=== PATIENT | male | born 1965 | race Caucasian/White ===

== ENCOUNTER 2017-04-14 01:04 | Emergency (ER) | payer BC ==
[2017-04-14 01:17] VITALS: BP 154/74
--- NOTE | 2017-04-14 01:23 | EDM.PDOC ---
ED HPI GENERAL MEDICAL PROBLEM - General Chief Complaint: ENT Problem Stated Complaint: NOSE BLEED Time Seen by Provider: 04/14/17 01:20 - History of Present Illness INITIAL COMMENTS - FREE TEXT/NARRATIVE: HISTORY AND PHYSICAL: History of present illness: Patient 51-year-old male presents with a concern of left-sided epistaxis that has resolved and back pain is at 1 week he is seen by his physician and had a follow-up visit he is currently on hydrocodone which has been causing constipation for which he has stopped taking and Robaxin. He denies trauma denies bleeding diathesis denies ecchymosis or other concerns. Review of systems: As per history of present illness and below otherwise all systems reviewed and negative. Past medical history: As per history of present illness and as reviewed below otherwise noncontributory. Surgical history: As per history of present illness and as reviewed below otherwise noncontributory. Social history: No reported history of drug or alcohol abuse. Family history: As per history of present illness and as reviewed below otherwise noncontributory. Physical exam: HEENT: Atraumatic, normocephalic, pupils reactive, negative for conjunctival pallor or scleral icterus, mucous membranes moist, throat clear, neck supple, nontender, trachea midline. Recent bleeding noted left nares no active bleeding anteriorly or posteriorly at this time Lungs: Clear to auscultation, breath sounds equal bilaterally, chest nontender. Heart: S1S2, regular, negative for clicks, rubs, or JVD. Abdomen: Soft, nondistended, nontender. Negative for masses or hepatosplenomegaly. Negative for costovertebral tenderness. Pelvis: Stable nontender. Genitourinary: Deferred. Rectal: Deferred. Extremities: Atraumatic, negative for cords or calf pain. Neurovascular unremarkable. Neuro: Awake, alert, oriented. Cranial nerves II through XII unremarkable. Cerebellum unremarkable. Motor and sensory unremarkable throughout. Exam nonfocal. Back: Patient has some mild paravertebral tenderness the level of the lumbar spine no vertebral body or point tenderness he is able stand on his toes back on his heels deep tendon reflexes motor and sensory are normal Diagnostics: None Therapeutics: None Impression: #1 epistaxis resolved #2 lumbosacral strain Definitive disposition and diagnosis as appropriate pending reevaluation and review of above. - Related Data Allergies Allergy/AdvReac Type Severity Reaction Status Date / Time No Known Allergies Allergy Verified 04/14/17 01:15 Home Meds: Home Meds Hydrocodone/Acetaminophen [Concan 5-325 Tablet] 1 each PO ASDIRECTED PRN [History] Methocarbamol 500 mg PO TID 04/14/17 [History] Social & Family History - Tobacco Use Smoking Status *Q: Never Smoker Second Hand Smoke Exposure: No - Alcohol Use Days Per Week of Alcohol Use: 0 - Recreational Drug Use Recreational Drug Use: No ED ROS GENERAL - Review of Systems Review Of Systems: ROS reveals no pertinent complaints other than HPI. ED EXAM, GENERAL - Physical Exam Exam: See Below (See dictation) Course - Vital Signs Last Recorded V/S: Last Vital Signs Temp 36.8 C 04/14/17 01:16 Pulse 70 04/14/17 01:16 Resp 18 04/14/17 01:16 BP 154/74 H 04/14/17 01:16 Pulse Ox 98 04/14/17 01:16 Departure - Departure Time of Disposition: 01:22 Disposition: Home, Self-Care 01 Condition: Good Clinical Impression: Epistaxis, Lumbosacral strain - Discharge Information Referrals: PCP,None [Primary Care Provider] - Additional Instructions: The following information is given to patients seen in the emergency department who are being discharged to home. This information is to outline your options for follow-up care. We provide all patients seen in our emergency department with a follow-up referral. The need for follow-up, as well as the timing and circumstances, are variable depending upon the specifics of your emergency department visit. If you don't have a primary care physician on staff, we will provide you with a referral. We always advise you to contact your personal physician following an emergency department visit to inform them of the circumstance of the visit and for follow-up with them and/or the need for any referrals to a consulting specialist. The emergency department will also refer you to a specialist when appropriate. This referral assures that you have the opportunity for followup care with a specialist. All of these measure are taken in an effort to provide you with optimal care, which includes your followup. Under all circumstances we always encourage you to contact your private physician who remains a resource for coordinating your care. When calling for followup care, please make the office aware that this follow-up is from your recent emergency room visit. If for any reason you are refused follow-up, please contact the [facility] emergency department at and asked to speak to the emergency department charge nurse. Nosebleed instructions as discussed prescriptions as discussed return as needed as discussed keep scheduled appointments private medical doctor and ENT
== END 2017-04-14 01:35 | disposition home or self-care (01) ==
LOC: MW.ED 01:04
DX: R04.0 Epistaxis (principal); S39.012A Strain of muscle, fascia and tendon of lower back, initial encounter; X58.XXXA Exposure to other specified factors, initial encounter
CPT/HCPCS: 99282; 99283

== ENCOUNTER 2017-04-21 16:11 | Emergency (ER) | payer BC, OTHER ==
[2017-04-21] MEDS ORDERED: Magnesium Citrate Solution 296 ML Bottle PO ONE (17:05)
--- NOTE | 2017-04-21 17:17 | EDM.PDOC ---
ED HPI GENERAL MEDICAL PROBLEM - General Stated Complaint: TROUBLE PASSING STOOL Time Seen by Provider: 04/21/17 17:02 Source of Information: Reports: Patient History Limitations: Reports: No Limitations - History of Present Illness INITIAL COMMENTS - FREE TEXT/NARRATIVE: History of present illness: [Patient indicates that he has not had a bowel movement 4 days that he considered using an enema at home but it was too painful to insert so he comes seeking attention.] Review of systems: As per history of present illness and below otherwise all systems reviewed and negative. Past medical history: As per history of present illness and as reviewed below otherwise noncontributory. Surgical history: As per history of present illness and as reviewed below otherwise noncontributory. Social history: No reported history of drug or alcohol abuse. Family history: As per history of present illness and as reviewed below otherwise noncontributory. Physical exam: HEENT: Atraumatic, normocephalic, pupils reactive, negative for conjunctival pallor or scleral icterus, mucous membranes moist, throat clear, neck supple, nontender, trachea midline. Lungs: Clear to auscultation, breath sounds equal bilaterally, chest nontender. Heart: S1S2, regular, negative for clicks, rubs, or JVD. Abdomen: Soft, nondistended, nontender. Negative for masses or hepatosplenomegaly. Negative for costovertebral tenderness. Pelvis: Stable nontender. Genitourinary: Deferred. Rectal: Hemorrhoid noted, digital exam reveals an array of multiple small hard pellet sized Extremities: Atraumatic, negative for cords or calf pain. Neurovascular unremarkable. Neuro: Awake, alert, oriented. Cranial nerves II through XII unremarkable. Cerebellum unremarkable. Motor and sensory unremarkable throughout. Exam nonfocal. Diagnostics: [KUB] Therapeutics: [Mag citrate, a saline enema] Impression: [Constipation] Plan: [Take fiber follow-up with primary care] Definitive disposition and diagnosis as appropriate pending reevaluation and review of above. Rectal Pain Score (Numeric/FACES): 10 - Related Data Allergies Allergy/AdvReac Type Severity Reaction Status Date / Time No Known Allergies Allergy Verified 04/21/17 17:00 Home Meds: Home Meds Gabapentin [Neurontin] 100 mg PO BID 04/21/17 [History] Past Medical History - Infectious Disease History Infectious Disease History: Reports: Chicken Pox - Past Surgical History GI Surgical History: Reports: Appendectomy Musculoskeletal Surgical History: Reports: Other (See Below) Other Musculoskeletal Surgeries/Procedures:: Tibial Plateau Fracture Social & Family History - Family History Family Medical History: Noncontributory - Tobacco Use Smoking Status *Q: Never Smoker Second Hand Smoke Exposure: No - Caffeine Use Caffeine Use: Reports: None - Alcohol Use Days Per Week of Alcohol Use: 0 - Recreational Drug Use Recreational Drug Use: No ED ROS GENERAL - Review of Systems Review Of Systems: See Below (See history of present illness) ED EXAM, GENERAL - Physical Exam Exam: See Below (See history of present illness) Course - Vital Signs Last Recorded V/S: Last Vital Signs Temp 37.1 C 04/21/17 16:58 Pulse 74 04/21/17 16:58 Resp 18 04/21/17 16:58 BP 158/97 H 04/21/17 16:58 Pulse Ox 97 04/21/17 16:58 - Orders/Labs/Meds Orders: Active Orders 24 hr Category Date Time Status KUB [Abdomen 1V Flat] [CR] Stat Exams 04/21/17 18:04 Ordered Meds: Medications Discontinued Medications Generic Name Dose Route Start Last Admin Trade Name Freq PRN Reason Stop Dose Admin Magnesium Citrate 296 ml 04/21/17 17:05 04/21/17 17:18 Citrate Of Magnesia PO 04/21/17 17:06 296 ml ONETIME ONE Administration Departure - Departure Time of Disposition: 18:58 Disposition: Home, Self-Care 01 Condition: Good Clinical Impression: Constipation - Discharge Information Instructions: Constipation, Adult, [id number] Additional Instructions: The following information is given to patients seen in the emergency department who are being discharged to home. This information is to outline your options for follow-up care. We provide all patients seen in our emergency department with a follow-up referral. The need for follow-up, as well as the timing and circumstances, are variable depending upon the specifics of your emergency department visit. If you don't have a primary care physician on staff, we will provide you with a referral. We always advise you to contact your personal physician following an emergency department visit to inform them of the circumstance of the visit and for follow-up with them and/or the need for any referrals to a consulting specialist. The emergency department will also refer you to a specialist when appropriate. This referral assures that you have the opportunity for follow-up care with a specialist. All of these measure are taken in an effort to provide you with optimal care, which includes your follow-up. Under all circumstances we always encourage you to contact your private physician who remains a resource for coordinating your care. When calling for follow-up care, please make the office aware that this follow-up is from your recent emergency room visit. If for any reason you are refused follow-up, please contact the [facility] Emergency Department at and asked to speak to the emergency department charge nurse. Increase her hydration and your fiber intake Follow-up with PCP in 2-3 days Return to ED as needed as discussed - My Orders Last 24 Hours: My Active Orders 04/21/17 18:04 KUB [Abdomen 1V Flat] [CR] Stat - Assessment/Plan Last 24 Hours: My Active Orders 04/21/17 18:04 KUB [Abdomen 1V Flat] [CR] Stat
[2017-04-21 23:08] VITALS: BP 157/80
--- NOTE | 2017-04-22 20:43 | CR ---
EXAM DATE: 04/21/17 PATIENT'S AGE: 51 Patient: VALERY JONES Facility: [place], [place] Site . Site : 1965 Study: XRay Abdomen [id number] 6:37:57 PM Ordering Physician: Doctor Cooper Final Report: INDICATION: constipation x4 days TECHNIQUE: Abdomen 2 view COMPARISON: None FINDINGS: Bowel: Nonobstructive bowel gas pattern. Moderate amount of stool. Soft tissues: No sign of soft tissue mass. No suspicious calcifications. Bones: Unremarkable for age. IMPRESSION: Nonobstructive bowel gas pattern. Moderate amount of stool. Dictated by Shahid Arana MD @ 04/21/2017 6:53:53 PM Dictated by: Shahid Arana MD @ 04/21/2017 18:54:06 (Electronic Signature) Report Signed by Proxy. RASHMI
== END 2017-04-21 20:00 | disposition home or self-care (01) ==
LOC: MW.ED 16:11
DX: K59.00 Constipation, unspecified (principal)
CPT/HCPCS: 74018; 99283; A9270; 99282

== ENCOUNTER 2017-04-24 21:19 | Inpatient (IN) | payer BC ==
[2017-04-24] MEDS ORDERED: Sodium Chloride 0.9% 1,000 ML IV ONE (21:41)
--- NOTE | 2017-04-24 22:13 | EDM.PDOC ---
ED HPI GENERAL MEDICAL PROBLEM - General Stated Complaint: UNK Time Seen by Provider: 04/24/17 22:00 Source of Information: Reports: Patient History Limitations: Reports: No Limitations - History of Present Illness INITIAL COMMENTS - FREE TEXT/NARRATIVE: History of present illness: [51-year-old male comes in status post seeing his primary care provider in the clinic with concerns of nosebleed as well as vomiting of blood. Patient has been struggling with pain in his lower back abdomen and constipation issues and has received different medical intervention for this. Patient denies significant weight loss. indicates he's always been slender. Patient looks significantly older than stated age.] Review of systems: As per history of present illness and below otherwise all systems reviewed and negative. Past medical history: As per history of present illness and as reviewed below otherwise noncontributory. Surgical history: As per history of present illness and as reviewed below otherwise noncontributory. Social history: No reported history of drug or alcohol abuse. Family history: As per history of present illness and as reviewed below otherwise noncontributory. Physical exam: HEENT: Atraumatic, normocephalic, pupils reactive, negative for conjunctival pallor or scleral icterus, mucous membranes moist, throat clear, neck supple, nontender, trachea midline. Lungs: Clear to auscultation, breath sounds equal bilaterally, chest nontender. Heart: S1S2, regular, negative for clicks, rubs, or JVD. Abdomen: Soft, nondistended, generalized nonspecific diffuse tenderness. Large amount of hepatosplenomegaly. Positive for costovertebral tenderness. Pelvis: Stable nontender. Genitourinary: Deferred. Rectal: Deferred. Extremities: Atraumatic, negative for cords or calf pain. Neurovascular unremarkable. Neuro: Awake, alert, oriented. Cranial nerves II through XII unremarkable. Cerebellum unremarkable. Motor and sensory unremarkable throughout. Exam nonfocal. Patient is pleasant and cooperative even if slightly pale. CT of abdomen reflected in a large mass on the liver as well as the sacrum. Also some thoracic compression fractures Will pull some baseline labs and admit to the hospitalist for further workup, pain management, referral to oncology. Diagnostics: [CBC, CMP, type and screen, UA, amylase, lipase] Therapeutics: [IV fluid] Impression: [#1 anemia #2 abdominal mass #3 epitaxsis #4 blood dyscrasia ] Plan: [admit to Dr. Truong] Definitive disposition and diagnosis as appropriate pending reevaluation and review of above. - Related Data Allergies Allergy/AdvReac Type Severity Reaction Status Date / Time No Known Allergies Allergy Verified 04/21/17 17:00 Home Meds: Home Meds Gabapentin [Neurontin] 100 mg PO BID 04/21/17 [History] Polyethylene Glycol 3350 [MiraLAX] 17 gm PO BEDTIME #30 packet 04/21/17 [Rx] Past Medical History Gastrointestinal History: Reports: Chronic Constipation Musculoskeletal History: Reports: Fracture - Infectious Disease History Infectious Disease History: Reports: Chicken Pox - Past Surgical History GI Surgical History: Reports: Appendectomy Musculoskeletal Surgical History: Reports: Other (See Below) Other Musculoskeletal Surgeries/Procedures:: Tibial Plateau Fracture Social & Family History - Family History Family Medical History: Noncontributory - Tobacco Use Smoking Status *Q: Never Smoker Second Hand Smoke Exposure: No - Caffeine Use Caffeine Use: Reports: None - Alcohol Use Days Per Week of Alcohol Use: 0 - Recreational Drug Use Recreational Drug Use: No ED ROS GENERAL - Review of Systems Review Of Systems: See Below (History of present illness) ED EXAM, GENERAL - Physical Exam Exam: See Below (History of present illness) Course - Vital Signs Last Recorded V/S: Last Vital Signs Temp 36.8 C 04/24/17 22:06 Pulse 91 04/24/17 22:06 Resp 14 04/24/17 22:06 BP 155/87 H 04/24/17 22:06 Pulse Ox 92 L 04/24/17 22:06 - Orders/Labs/Meds Orders: Active Orders 24 hr Category Date Time Status AMYLASE [CHEM] Stat Lab 04/24/17 22:05 Received COMPREHENSIVE METABOLIC PN,CMP [CHEM] Stat Lab 04/24/17 22:05 Received LIPASE [CHEM] Stat Lab 04/24/17 22:05 Received TYPE AND SCREEN [BBK] Stat Lab 04/24/17 22:22 Received UA W/MICROSCOPIC [URIN] Stat Lab 04/24/17 21:41 Uncollected Labs: Laboratory Tests 04/24/17 Range/Units 22:05 WBC 12.51 H (4.0-11.0) K/uL RBC 2.19 L (4.50-5.90) M/uL Hgb 7.1 L (13.0-17.0) g/dL Hct 21.2 L (38.0-50.0) % MCV 96.8 (80.0-98.0) fL MCH 32.4 H (27.0-32.0) pg MCHC 33.5 (31.0-37.0) g/dL RDW Std Deviation 61.8 (28.0-62.0) fl RDW Coeff of Francis 18 H (11.0-15.0) % Plt Count 136 L (150-400) K/uL MPV 8.90 (7.40-12.00) fL Add Manual Diff YES Neutrophils % (Manual) 37 L (48.0-80.0) % Band Neutrophils % 3 % Lymphocytes % (Manual) 57 H (16.0-40.0) % Monocytes % (Manual) 3 (0.0-15.0) % Nucleated RBC % 1.2 /100WBC Absolute Seg Neuts 4.6 (1.4-5.7) Band Neutrophils # 0.4 Lymphocytes # (Manual) 7.1 H (0.6-2.4) Monocytes # (Manual) 0.4 (0.0-0.8) Nucleated RBCs # 0 K/uL Meds: Medications Discontinued Medications Generic Name Dose Route Start Last Admin Trade Name Latesha PRN Reason Stop Dose Admin Sodium Chloride 1,000 mls @ 999 mls/hr 04/24/17 21:41 04/24/17 22:05 Normal Saline IV 04/24/17 22:41 999 mls/hr STAT ONE Administration Departure - Departure Time of Disposition: 23:09 Disposition: Admitted As Inpatient 66 Condition: Good Clinical Impression: Blood coagulation disorder - Discharge Information Referrals: Little Roth MD [Primary Care Provider] - - My Orders Last 24 Hours: My Active Orders 04/24/17 21:41 UA W/MICROSCOPIC [URIN] Stat 04/24/17 22:05 AMYLASE [CHEM] Stat COMPREHENSIVE METABOLIC PN,CMP [CHEM] Stat LIPASE [CHEM] Stat 04/24/17 22:22 TYPE AND SCREEN [BBK] Stat - Assessment/Plan Last 24 Hours: My Active Orders 04/24/17 21:41 UA W/MICROSCOPIC [URIN] Stat 04/24/17 22:05 AMYLASE [CHEM] Stat COMPREHENSIVE METABOLIC PN,CMP [CHEM] Stat LIPASE [CHEM] Stat 04/24/17 22:22 TYPE AND SCREEN [BBK] Stat
[2017-04-24] MEDS: Sodium Chloride 0.9% 1,000 ML IV SCH (23:34)
[2017-04-25] MEDS: Sodium Chloride 0.9% 1,000 ML IV SCH (09:14)
--- NOTE | 2017-04-25 09:25 | PCM.HP ---
H&P History of Present Illness - General Date of Service: 04/25/17 Admit Problem/Dx: Admission Diagnosis/Problem Admission Diagnosis/Problem Blood coagulation disorder Source of Information: Patient History Limitations: Reports: No Limitations - History of Present Illness Initial Comments - Free Text/Narative: This 51 year old otherwise healthy male presented to the ED last evening with concerns of lytic lesion to L sacrum after having CT of abd/pelvis in clinic. He reports low back pain started a little before [place] and has slowly worsened. Many of the medications he has tried haven't worked well. These include Ibuprofen, muscle relaxer, and Gabapentin. He also reports having a nagging nose bleed, which has been intermittent since this time as well. He denies trauma to his nose. He denies vomiting blood, but reports he has been swallowing a lot and sniffling. She reports coming to the ED around [employer] for a nose bleed, but the second they got outside it stopped and also constipation due to [place]. he was treated with Mag Citrate. He reports then having many BM's and his noted his rectum was very large and filled with stool and noticed elma blood as well. They also report hematuria, which they saw PCP Apr 07 for, which they suspected kidney stone at that time. He reports having some changes in bowel habits, but some of these are explained by starting of pain medications. He denies having a colonoscopy for screening. In the ED, WBC 12,510, hgb 7.1 platelets 136. BUN 58, Cr 2.2. BP 140-160.90s and HR 70-90s. CT of abdomen/pelvis revealed "marked hepatomegaly without mass lesion, Mild splenomegaly, Bilateral renal cysts without calcified urolithiasis , hydronephrosis or ureteral obstruction, 4.2 cm lytic mass left side of the sacrum suspicious for neoplasia. Moderate T12 compression fracture which may be pathologic as there is some lucency in the posterior aspect of the T12 vertebral body. A small 9 mm lucency seen posterior right aspect of T11. Ascites with presacral edema, The sigmoid colon is decompressed. Questionable circumferential wall thickening of the rectosigmoid junction, Scrotal edema." He was admitted due to back pain and anemia. - Related Data Allergies/Adverse Reactions: Allergies Allergy/AdvReac Type Severity Reaction Status Date / Time No Known Allergies Allergy Verified 04/21/17 17:00 Home Medications: Home Meds Gabapentin [Neurontin] 100 mg PO BID 04/21/17 [History] Polyethylene Glycol 3350 [MiraLAX] 17 gm PO BEDTIME #30 packet 04/21/17 [Rx] Past Medical History HEENT History: Reports: None Cardiovascular History: Reports: None. Denies: Afib, Blood Clots/VTE/DVT, CAD, Heart Failure, High Cholesterol, Hypertension, PR Respiratory History: Reports: None. Denies: Asthma, COPD, PE Gastrointestinal History: Reports: Chronic Constipation Musculoskeletal History: Reports: Fracture Neurological History: Reports: None. Denies: CVA, Migraines, TIA Psychiatric History: Reports: None Endocrine/Metabolic History: Reports: None. Denies: Diabetes, Type II, Hypothyroidism Hematologic History: Reports: None - Infectious Disease History Infectious Disease History: Reports: Chicken Pox - Past Surgical History GI Surgical History: Reports: Appendectomy Male Surgical History: Reports: None Musculoskeletal Surgical History: Reports: Other (See Below) Other Musculoskeletal Surgeries/Procedures:: Tibial Plateau Fracture Social & Family History - Family History Family Medical History: Noncontributory - Tobacco Use Smoking Status *Q: Never Smoker Second Hand Smoke Exposure: No - Caffeine Use Caffeine Use: Reports: Soda - Alcohol Use Days Per Week of Alcohol Use: 0 - Recreational Drug Use Recreational Drug Use: No - Living Situation & Occupation Living situation: Reports: Occupation: Employed (Works at [employer]) H&P Review of Systems - Review of Systems: Review Of Systems: See Below General: Reports: Fatigue ( reports he has been sleeping a lot). Denies: Fever, Chills, Decreased Appetite HEENT: Reports: Other (Epitaxis, intermittently) Pulmonary: Reports: No Symptoms. Denies: Shortness of Breath, Wheezing, Cough, Sputum, Hemoptysis Cardiovascular: Reports: No Symptoms. Denies: Chest Pain, Palpitations, Edema, Lightheadedness, Syncope Gastrointestinal: Reports: Bloody Stool (reports during episode of consitpation , he has some rectal bleeding due to full rectum), Constipation, Flatus. Denies : Abdominal Pain, Anorexia, Distension, Nausea, Vomiting Genitourinary: Reports: Hematuria. Denies: Dysuria, Frequency, Burning Musculoskeletal: Reports: No Symptoms Skin: Reports: Pallor Psychiatric: Reports: No Symptoms Neurological: Reports: No Symptoms. Denies: Confusion Hematologic/Lymphatic: Reports: Anemia, Easy Bleeding Immunologic: Reports: No Symptoms Exam - Exam Exam: See Below - Vital Signs Vital Signs: Last Vital Signs Temp 99.0 F 04/25/17 08:00 Pulse 78 04/25/17 08:00 Resp 16 04/25/17 08:00 BP 147/93 H 04/25/17 08:00 Pulse Ox 94 L 04/25/17 08:00 Weight: 59.421 kg - Exam General: Alert, Oriented, Cooperative, Other (appears pale and cachetic, reports he has always been thin, no increased weight loss recently.) HEENT: Conjunctiva Clear. No: Mucosa Moist & [place] (dry cracked lips.) Neck: Supple, Trachea Midline. No: Full Range of Motion, Lymphadenopathy Lungs: Clear to Auscultation, Normal Respiratory Effort Cardiovascular: Regular Rate, Regular Rhythm, Normal S1, Normal S2 GI/Abdominal Exam: Normal Bowel Sounds, Soft, Non-Tender, No Organomegaly, No Distention, No Abnormal Bruit, No Mass, Hepatomegaly, Other (abdomen flat). No : Distended, Guarding, Rigid (Male) Exam: Scrotal Swelling (slight edema noted) Back Exam: Normal Inspection, Full Range of Motion, NT Extremities: Normal Inspection, Normal Range of Motion, Non-Tender, No Pedal Edema, Normal Capillary Refill Neurological: Cranial Nerves Intact, Reflexes Equal Bilateral Neuro Extensive - Mental Status: Alert, Oriented x3, Normal Mood/Affect, Normal Cognition Neuro Extensive - Motor, Sensory, Reflexes: CN II-XII Intact Psychiatric: Alert, Normal Affect, Normal Mood - Patient Data Lab Results Last 24 hrs: Laboratory Results - last 24 hr 04/25/17 04/25/17 04/25/17 Range/Units 00:49 04:42 04:42 WBC 12.22 H (4.0-11.0) K/uL RBC 1.91 L (4.50-5.90) M/uL Hgb 6.2 L (13.0-17.0) g/dL Hct 18.5 L (38.0-50.0) % MCV 96.9 (80.0-98.0) fL MCH 32.5 H (27.0-32.0) pg MCHC 33.5 (31.0-37.0) g/dL RDW Std Deviation 61.2 (28.0-62.0) fl RDW Coeff of Francis 18 H (11.0-15.0) % Plt Count 161 (150-400) K/uL MPV 9.00 (7.40-12.00) fL Add Manual Diff YES Neutrophils % (Manual) 34 L (48.0-80.0) % Band Neutrophils % 3 % Lymphocytes % (Manual) 59 H (16.0-40.0) % Monocytes % (Manual) 4 (0.0-15.0) % Nucleated RBC % 1.2 /100WBC Absolute Seg Neuts 4.2 (1.4-5.7) Band Neutrophils # 0.4 Lymphocytes # (Manual) 7.2 H (0.6-2.4) Monocytes # (Manual) 0.5 (0.0-0.8) Nucleated RBCs # 0 K/uL Sodium 137 (136-146) mmol/L Potassium 3.5 (3.5-5.1) mmol/L Chloride 100 (98-110) mmol/L Carbon Dioxide 26 (21-31) mmol/L BUN 58 H (6.0-23.0) mg/dL Creatinine 2.2 H (0.6-1.5) mg/dL Est Cr Clr Drug Dosing 33.39 mL/min Estimated GFR (MDRD) 31.7 ml/min Glucose 96 (60-110) mg/dL Calcium 13.9 H (8.8-10.8) mg/dL Magnesium 1.8 (1.5-2.3) mEq/L Urine Color YELLOW Urine Appearance SLT CLOUDY Urine pH 6.5 (5.0-8.0) Ur Specific [place] 1.015 (1.001-1.035) Urine Protein 100 (NEGATIVE) mg/dL Urine Glucose (UA) NEGATIVE (NEGATIVE) mg/dL Urine Ketones NEGATIVE (NEGATIVE) mg/dL Urine Occult Blood LARGE H (NEGATIVE) Urine Nitrite NEGATIVE (NEGATIVE) Urine Bilirubin NEGATIVE (NEGATIVE) Urine Urobilinogen 0.2 (<2.0) EU/dL Ur Leukocyte Esterase NEGATIVE (NEGATIVE) Urine RBC TOO NUMBEROUS TO CT (0-2/HPF) Urine WBC 1-2 (0-5/HPF) Ur Epithelial Cells RARE (NONE-FEW) Urine Bacteria FEW (NEGATIVE) Result Diagrams: 04/25/17 04:42 04/25/17 04:42 *Q Meaningful Use (ADM) - VTE *Q VTE Criteria *Q: - Stroke *Q Stroke Criteria *Q: - AMI *Q AMI Criteria *Q: - Problem List (1) Anemia SNOMED Code(s): 112473513 ICD Code: D64.9 - ANEMIA, UNSPECIFIED Status: Acute Current Visit: Yes Qualifiers: Anemia type: unspecified type Qualified Code(s): D64.9 - Anemia, unspecified (2) Sacral lesion SNOMED Code(s): 75583286 ICD Code: M53.3 - SACROCOCCYGEAL DISORDERS, NOT ELSEWHERE CLASSIFIED Status : Acute Current Visit: Yes (3) Low back pain SNOMED Code(s): 285884860 ICD Code: M54.5 - LOW BACK PAIN Status: Acute Current Visit: Yes (4) Compression fracture of T12 vertebra SNOMED Code(s): 671936935 ICD Code: S22.080A - WEDGE COMPRESSION FRACTURE OF T11-T12 VERTEBRA, INIT Status: Acute Current Visit: Yes (5) Hepatomegaly SNOMED Code(s): 49913456 ICD Code: R16.0 - HEPATOMEGALY, NOT ELSEWHERE CLASSIFIED Status: Acute Current Visit: Yes (6) Epistaxis SNOMED Code(s): 042392562 ICD Code: R04.0 - EPISTAXIS Status: Acute Current Visit: No Problem List Initiated/Reviewed/Updated: Yes Orders Last 24hrs: Active Orders 24 hr Category Date Time Status Regular Diet [DIET] Diet 04/25/17 Breakfast Active FERRITIN [REF] Routine Lab 04/25/17 09:14 Ordered FOLIC ACID [CHEM] Routine Lab 04/25/17 09:14 Ordered INR,PT,PROTHROMBIN TIME [COAG] Routine Lab 04/25/17 09:18 Ordered IRON/TIBC [CHEM] Routine Lab 04/25/17 09:14 Ordered PERIPH BLOOD SMEAR PATHOLOGIST [HEME] Routine Lab 04/25/17 09:14 Ordered RED BLOOD CELLS LP [BBK] Routine Lab 04/24/17 22:22 Results RETICULOCYTE COUNT [HEME] Routine Lab 04/25/17 09:14 Ordered TRANSFERRIN [CHEM] Routine Lab 04/25/17 09:14 Ordered VITAMIN B12 [CHEM] Routine Lab 04/25/17 09:14 Ordered Sodium Chloride 0.9% [Normal Saline] 1,000 ml Med 04/24/17 23:45 Active IV ASDIRECTED Transfuse RBC [Transfuse Red Blood Cells] [COMM] Oth 04/25/17 09:14 Ordered Routine Medication Orders Sodium Chloride (Normal Saline) 1,000 mls @ 125 mls/hr IV ASDIRECTED [facility] Last Admin: 04/25/17 09:14 Dose: 125 mls/hr Infusion: 04/25/17 07:34 Dose: 125 mls/hr Admin: 04/24/17 23:34 Dose: 125 mls/hr Assessment/Plan Comment:: This 51 year old male admitted with suspicious sacral lytic lesion, low back pain and new onset symptomatic anemia 1. New onset anemia: possibly related to neoplasm. Iron studies and peripheral smear pending. Hgb 6.2 this morning, patient tired and easily falls asleep during interview. reports this has been happening recently. Will transfuse 2 units PRBCs this morning, and check Hgb this afternoon. Goal of 10 for hgb. Will monitor. Iron 73, TIBC low at 208, transferrin 146. Consider slow bleed? Peripheral smear still pending. 2. Lytic spinal lesion: 4.2 cm L side of sacrum. Suspicious for neoplasm with lucencies noted in T12 and T11 with compression fractures. I spoke with Dr. All Gracia who has agreed to perform biopsy when patient is more stable. Will have this arranged as outpatient next week if possible. Will speak with Oncology nurse to give them a heads up to arrange follow up as well. 3. Hepatomegaly: INR slightly elevated 1.15 with elevated bilirubin, 1.6. Lipase elevated as well, reports no abdominal pain or nausea. No lesions noted to pancreas or Liver. Mild splenomegaly noted on CT as well. Consider malignancy. 4. Low back pain: Likely secondary to sacral lesion and compression fractures. Will order pain medication as well as Colace to prevent constipation. VTE: SCDs due to acute bleeding Dispo: 2-3 day pending improvement.
[2017-04-25] MEDS ORDERED: Docusate Sodium 100 MG Cap PO PRN (10:31)
[2017-04-25] MEDS ORDERED: oxyCODONE 5 MG Tab PO PRN (10:31)
[2017-04-25] MEDS ORDERED: Acetaminophen 325 MG Tab PO PRN (10:31)
--- NOTE | 2017-04-26 06:43 | PCM.PN ---
- General Info Date of Service: 04/26/17 Admission Dx/Problem (Free Text): Admission Diagnosis/Problem Admission Diagnosis/Problem Blood coagulation disorder Subjective Update: Still very fatigued this morning. Having no pain. Is somewhat discouraged secondary to wanting to go home but not able to at this time. No nausea/ vomiting, sob, chest pain, palpitiations. Functional Status: Reports: Pain Controlled. Denies: Tolerating Diet - Review of Systems General: Reports: Weakness, Fatigue. Denies: Fever HEENT: Denies: Headaches, Visual Changes Pulmonary: Denies: Shortness of Breath, Hemoptysis Cardiovascular: Denies: Chest Pain, Palpitations, Edema Gastrointestinal: Denies: Abdominal Pain, Nausea, Vomiting Genitourinary: Denies: Dysuria, Hematuria Musculoskeletal: Denies: Neck Pain, Leg Pain Skin: Denies: Cyanosis Neurological: Denies: Confusion, Dizziness, Headache - Patient Data Vitals - Most Recent: Last Vital Signs Temp 98.9 F 04/26/17 05:14 Pulse 74 04/26/17 05:14 Resp 16 04/26/17 05:14 BP 157/81 H 04/26/17 05:14 Pulse Ox 94 L 04/26/17 05:14 Weight - Most Recent: 59.421 kg I&O - Last 24 Hours: Intake & Output 04/25/17 04/25/17 04/26/17 14:59 22:59 06:59 Intake Total 9584 341 3630 Output Total 1200 1850 Balance 1371 -465 -96 Lab Results Last 24 Hours: Laboratory Results - last 24 hr 04/25/17 04/25/17 04/25/17 Range/Units 04:42 09:39 09:39 WBC 12.22 H (4.0-11.0) K/uL RBC 1.91 L 1.93 L (4.50-5.90) M/uL Hgb 6.2 L (13.0-17.0) g/dL Hct 18.5 L (38.0-50.0) % MCV 96.9 (80.0-98.0) fL MCH 32.5 H (27.0-32.0) pg MCHC 33.5 (31.0-37.0) g/dL RDW Std Deviation 61.2 (28.0-62.0) fl RDW Coeff of Francis 18 H (11.0-15.0) % Plt Count 161 (150-400) K/uL MPV 9.00 (7.40-12.00) fL Add Manual Diff YES Neutrophils % (Manual) 34 L (48.0-80.0) % Band Neutrophils % 3 % Lymphocytes % (Manual) 59 H (16.0-40.0) % Monocytes % (Manual) 4 (0.0-15.0) % Nucleated RBC % 1.2 /100WBC Absolute Seg Neuts 4.2 (1.4-5.7) Band Neutrophils # 0.4 Lymphocytes # (Manual) 7.2 H (0.6-2.4) Monocytes # (Manual) 0.5 (0.0-0.8) Nucleated RBCs # 0 K/uL Smear Path Review SENT TO PATHOLOGY Absolute Retic 23.90 (20-80) K/uL Percent Retic 1.2 (0.5-1.5) % Immature Retic Fraction 20 % INR (0.86-1.11) Iron 73 (50-170) ug/dL TIBC 208 L (273-456) ug/dL % Saturation 35.10 (20-55) % Transferrin 146 L (200-400) ug/dL Vitamin B12 (200-1100) PG/ML Folate (7.2-15.4) ng/mL 04/25/17 04/25/17 04/25/17 Range/Units 09:39 09:39 18:14 WBC (4.0-11.0) K/uL RBC (4.50-5.90) M/uL Hgb 7.8 L (13.0-17.0) g/dL Hct 22.4 L (38.0-50.0) % MCV (80.0-98.0) fL MCH (27.0-32.0) pg MCHC (31.0-37.0) g/dL RDW Std Deviation (28.0-62.0) fl RDW Coeff of Francis (11.0-15.0) % Plt Count (150-400) K/uL MPV (7.40-12.00) fL Add Manual Diff Neutrophils % (Manual) (48.0-80.0) % Band Neutrophils % % Lymphocytes % (Manual) (16.0-40.0) % Monocytes % (Manual) (0.0-15.0) % Nucleated RBC % /100WBC Absolute Seg Neuts (1.4-5.7) Band Neutrophils # Lymphocytes # (Manual) (0.6-2.4) Monocytes # (Manual) (0.0-0.8) Nucleated RBCs # K/uL Smear Path Review Absolute Retic (20-80) K/uL Percent Retic (0.5-1.5) % Immature Retic Fraction % INR 1.15 H (0.86-1.11) Iron (50-170) ug/dL TIBC (273-456) ug/dL % Saturation (20-55) % Transferrin (200-400) ug/dL Vitamin B12 662 (200-1100) PG/ML Folate 15.4 (7.2-15.4) ng/mL Med Orders - Current: Current Medications Acetaminophen (Tylenol) 650 mg PO Q4H PRN PRN Reason: Pain (Mild 1-3)/fever Docusate Sodium (Colace) 100 mg PO BID PRN PRN Reason: Constipation Sodium Chloride (Normal Saline) 1,000 mls @ 125 mls/hr IV ASDIRECTED [facility] Last Admin: 04/25/17 09:14 Dose: 125 mls/hr Oxycodone HCl (Oxycodone) 5 mg PO Q4H PRN PRN Reason: Pain (moderate 4-6) Discontinued Medications Sodium Chloride (Normal Saline) 1,000 mls @ 999 mls/hr IV STAT ONE Stop: 04/24/17 22:41 Last Admin: 04/24/17 22:05 Dose: 999 mls/hr - Exam Quality Assessment: DVT Prophylaxis General: Alert, Oriented, Cooperative, No Acute Distress HEENT: Pupils Equal, Pupils Reactive, EOMI, Mucous Membr. Moist/[place] Neck: Supple, Trachea Midline Lungs: Clear to Auscultation, Normal Respiratory Effort Cardiovascular: Regular Rate, Regular Rhythm GI/Abdominal Exam: Normal Bowel Sounds, Soft, Non-Tender, No Distention, Hepatomegaly, Splenomegaly Back Exam: Normal Inspection Extremities: Normal Inspection, Non-Tender, No Pedal Edema, Normal Capillary Refill Peripheral Pulses: 2+: Radial (L), Radial (R), Posterior Tibial (L), Posterior Tibial (R), Dorsalis Pedis (L), Dorsalis Pedis (R) Skin: Warm, Dry, Intact Neurological: No New Focal Deficit Psy/Mental Status: Alert, Normal Affect, Normal Mood - Problem List & Annotations (1) Anemia SNOMED Code(s): 135292963 Code(s): D64.9 - ANEMIA, UNSPECIFIED Status: Acute Current Visit: Yes Qualifiers: Anemia type: iron deficiency Iron deficiency anemia type: chronic blood loss Qualified Code(s): D50.0 - Iron deficiency anemia secondary to blood loss (chronic) (2) Compression fracture of T12 vertebra SNOMED Code(s): 208652094 Code(s): S22.080A - WEDGE COMPRESSION FRACTURE OF T11-T12 VERTEBRA, INIT Status: Acute Priority: Medium Current Visit: Yes (3) Hepatomegaly SNOMED Code(s): 61109465 Code(s): R16.0 - HEPATOMEGALY, NOT ELSEWHERE CLASSIFIED Status: Acute Priority: Medium Current Visit: Yes (4) Sacral lesion SNOMED Code(s): 75004934 Code(s): M53.3 - SACROCOCCYGEAL DISORDERS, NOT ELSEWHERE CLASSIFIED Status : Acute Priority: High Current Visit: Yes - Problem List Review Problem List Initiated/Reviewed/Updated: Yes - My Orders Last 24 Hours: My Active Orders 04/25/17 18:42 Transfuse RBC [Transfuse Red Blood Cells] [COMM] Routine 04/25/17 Breakfast Regular Diet [DIET] - Plan Plan:: 51 year old male admitted 04/24/16 with suspicious sacral lytic lesion, low back pain and new onset symptomatic anemia 1. New onset anemia: Most likely related to new sacral neoplasm. 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 Peripheral smear is still pending. Hgb 9.8 this morning, will recheck again at noon and tomorrow am to see if stabilized. 2. Lytic spinal lesion: 4.2 cm L side of sacrum. Suspicious for neoplasm with lucencies noted in T12 and T11 with compression fractures. Will plan for Dr. Gracia to do biopsy if patient remains stabilized. This can be preformed as an outpatient. We have talked to Oncology nurses for future follow-up at discharge. If patient continues to bleed, and hgb does not stabilize he may need transfer to larger facility. 3. Hepatomegaly: INR slightly elevated 1.15 with elevated bilirubin, 1.6. Lipase elevated as well, reports no abdominal pain or nausea. No lesions noted to pancreas or Liver. Mild splenomegaly noted on CT as well. Consider malignancy. 4. Low back pain: Likely secondary to sacral lesion and compression fractures. Pain control currently with pain medication. VTE: SCDs due to acute bleeding Dispo: 2-3 day pending improvement.
[2017-04-26] MEDS: Sodium Chloride 0.9% 1,000 ML IV SCH ×2 (07:13→18:36)
[2017-04-26] MEDS: Pantoprazole 40 MG Vial IVPUSH SCH ×2 (18:43→20:45)
[2017-04-26] MEDS ORDERED: hydrALAZINE 20 MG/ML SDV IVPUSH ONE (21:03)
[2017-04-27] MEDS: Sodium Chloride 0.9% 1,000 ML IV SCH ×3 (02:55→19:16)
--- NOTE | 2017-04-27 08:15 | PCM.PN ---
- General Info Date of Service: 04/27/17 Admission Dx/Problem (Free Text): Admission Diagnosis/Problem Admission Diagnosis/Problem Blood coagulation disorder Subjective Update: Still feeling very fatigued and unable to eat much. However, does feel he is improved from yesterday. No pain, nausea, vomiting, diarrhea. - Review of Systems General: Reports: Weakness, Fatigue, Malaise. Denies: Fever, Appetite HEENT: Denies: Headaches, Visual Changes Pulmonary: Denies: Shortness of Breath, Hemoptysis Cardiovascular: Denies: Chest Pain, Edema Gastrointestinal: Denies: Abdominal Pain Genitourinary: Reports: Hematuria. Denies: Dysuria Musculoskeletal: Denies: Neck Pain, Leg Pain Skin: Denies: Cyanosis Neurological: Denies: Confusion, Dizziness, Headache - Patient Data Vitals - Most Recent: Last Vital Signs Temp 98.2 F 04/27/17 04:00 Pulse 80 04/27/17 04:00 Resp 16 04/27/17 04:00 BP 155/93 H 04/27/17 04:00 Pulse Ox 96 04/27/17 04:00 Weight - Most Recent: 59.421 kg I&O - Last 24 Hours: Intake & Output 04/26/17 04/27/17 04/27/17 22:59 06:59 14:59 Intake Total 500 600 Output Total 2300 2100 Balance -1800 -1500 Lab Results Last 24 Hours: Laboratory Results - last 24 hr 04/26/17 04/26/17 04/27/17 Range/Units 09:12 12:14 04:30 WBC 9.60 (4.0-11.0) K/uL RBC 2.95 L (4.50-5.90) M/uL Hgb 9.6 L 9.3 L (13.0-17.0) g/dL Hct 27.5 L 26.6 L (38.0-50.0) % MCV 90.2 (80.0-98.0) fL MCH 31.5 (27.0-32.0) pg MCHC 35.0 (31.0-37.0) g/dL RDW Std Deviation 63.8 H (28.0-62.0) fl RDW Coeff of Francis 20 H (11.0-15.0) % Plt Count 172 (150-400) K/uL MPV 9.00 (7.40-12.00) fL Add Manual Diff YES Nucleated RBC % 1.4 /100WBC Nucleated RBCs # 0 K/uL Sodium 140 (136-146) mmol/L Potassium 3.5 (3.5-5.1) mmol/L Chloride 102 (98-110) mmol/L Carbon Dioxide 20 L (21-31) mmol/L BUN 53 H (6.0-23.0) mg/dL Creatinine 2.2 H (0.6-1.5) mg/dL Est Cr Clr Drug Dosing 33.39 mL/min Estimated GFR (MDRD) 31.7 ml/min Glucose 89 (60-110) mg/dL Calcium 14.3 H (8.8-10.8) mg/dL Total Bilirubin 1.8 H (0.1-1.5) mg/dL AST 50 H (5-40) IU/L ALT 36 (8-54) IU/L Alkaline Phosphatase 127 (40-150) Total Protein 11.8 H (6.0-8.0) g/dL Albumin 2.2 L (3.5-5.0) g/dL Globulin 9.6 H (2.0-3.5) g/dL Albumin/Globulin Ratio 0.23 Lipase 100 H (7-80) U/L 04/27/17 Range/Units 04:30 WBC (4.0-11.0) K/uL RBC (4.50-5.90) M/uL Hgb (13.0-17.0) g/dL Hct (38.0-50.0) % MCV (80.0-98.0) fL MCH (27.0-32.0) pg MCHC (31.0-37.0) g/dL RDW Std Deviation (28.0-62.0) fl RDW Coeff of Francis (11.0-15.0) % Plt Count (150-400) K/uL MPV (7.40-12.00) fL Add Manual Diff Nucleated RBC % /100WBC Nucleated RBCs # K/uL Sodium 141 (136-146) mmol/L Potassium 3.3 L (3.5-5.1) mmol/L Chloride 106 (98-110) mmol/L Carbon Dioxide 22 (21-31) mmol/L BUN 46 H (6.0-23.0) mg/dL Creatinine 2.3 H (0.6-1.5) mg/dL Est Cr Clr Drug Dosing 31.93 mL/min Estimated GFR (MDRD) 30.1 ml/min Glucose 95 (60-110) mg/dL Calcium 14.2 H (8.8-10.8) mg/dL Total Bilirubin 1.8 H (0.1-1.5) mg/dL AST 44 H (5-40) IU/L ALT 33 (8-54) IU/L Alkaline Phosphatase 123 (40-150) Total Protein 11.5 H (6.0-8.0) g/dL Albumin 2.1 L (3.5-5.0) g/dL Globulin 9.4 H (2.0-3.5) g/dL Albumin/Globulin Ratio 0.22 Lipase (7-80) U/L Zak Results Last 24 Hours: Microbiology 04/26/17 10:45 Stool Occult Blood (ZAK) - Final Stool / Feces Med Orders - Current: Current Medications Acetaminophen (Tylenol) 650 mg PO Q4H PRN PRN Reason: Pain (Mild 1-3)/fever Last Admin: 04/26/17 20:42 Dose: 650 mg Docusate Sodium (Colace) 100 mg PO BID PRN PRN Reason: Constipation Sodium Chloride (Normal Saline) 1,000 mls @ 125 mls/hr IV ASDIRECTED [facility] Last Admin: 04/27/17 02:55 Dose: 125 mls/hr Oxycodone HCl (Oxycodone) 5 mg PO Q4H PRN PRN Reason: Pain (moderate 4-6) Last Admin: 04/26/17 23:37 Dose: 5 mg Pantoprazole Sodium (Protonix Iv) 80 mg IVPUSH BID [facility] Last Admin: 04/26/17 20:45 Dose: Not Given Discontinued Medications Hydralazine HCl (Apresoline) 10 mg IVPUSH ONETIME ONE Stop: 04/26/17 21:04 Last Admin: 04/26/17 21:48 Dose: 10 mg Sodium Chloride (Normal Saline) 1,000 mls @ 999 mls/hr IV STAT ONE Stop: 04/24/17 22:41 Last Admin: 04/24/17 22:05 Dose: 999 mls/hr - Exam Quality Assessment: DVT Prophylaxis General: Alert, Oriented, Cooperative, No Acute Distress HEENT: Pupils Equal, Pupils Reactive, EOMI, Mucous Membr. Moist/[place] Neck: Supple, Trachea Midline Lungs: Clear to Auscultation, Normal Respiratory Effort Cardiovascular: Regular Rate, Regular Rhythm GI/Abdominal Exam: Normal Bowel Sounds, Soft, Non-Tender, No Organomegaly, No Distention Back Exam: Normal Inspection Extremities: Normal Inspection, Non-Tender, No Pedal Edema, Normal Capillary Refill Peripheral Pulses: 2+: Radial (L), Radial (R), Posterior Tibial (L), Posterior Tibial (R), Dorsalis Pedis (L), Dorsalis Pedis (R) Skin: Warm, Dry, Intact Wound/Incisions: Healing Well Neurological: No New Focal Deficit Psy/Mental Status: Alert, Normal Affect, Normal Mood - Problem List & Annotations (1) Anemia SNOMED Code(s): 133366159 Code(s): D64.9 - ANEMIA, UNSPECIFIED Status: Acute Current Visit: Yes Qualifiers: Anemia type: iron deficiency Iron deficiency anemia type: chronic blood loss Qualified Code(s): D50.0 - Iron deficiency anemia secondary to blood loss (chronic) (2) Compression fracture of T12 vertebra SNOMED Code(s): 569673025 Code(s): S22.080A - WEDGE COMPRESSION FRACTURE OF T11-T12 VERTEBRA, INIT Status: Acute Priority: Medium Current Visit: Yes (3) Hepatomegaly SNOMED Code(s): 28349145 Code(s): R16.0 - HEPATOMEGALY, NOT ELSEWHERE CLASSIFIED Status: Acute Priority: Medium Current Visit: Yes (4) Sacral lesion SNOMED Code(s): 69625452 Code(s): M53.3 - SACROCOCCYGEAL DISORDERS, NOT ELSEWHERE CLASSIFIED Status : Acute Priority: High Current Visit: Yes - Problem List Review Problem List Initiated/Reviewed/Updated: Yes - My Orders Last 24 Hours: My Active Orders 04/26/17 14:09 Communication Order [RC] ROUTINE 04/26/17 17:53 Pantoprazole [ProTONIX IV] 80 mg IVPUSH BID - Plan Plan:: 51 year old male admitted 04/24/16 with suspicious sacral lytic lesion, low back pain and new onset symptomatic anemia 1. New onset anemia: Most likely related to new sacral neoplasm. Iron deficient anemia most likely from chronic watermaster blood loss. Peripheral smear is still pending. Hgb 9.3 down from 9.8 this morning. Will monitor for one more day and if still stabilized plan for discharge tomorrow. 2. Lytic spinal lesion: 4.2 cm L side of sacrum. Suspicious for neoplasm with lucencies noted in T12 and T11 with compression fractures. Will plan for Dr. Gracia to do biopsy. This can be preformed as an outpatient. We have talked to Oncology nurses for future follow-up at discharge. If patient continues to bleed, and hgb does not stabilize he may need transfer to larger facility. 3. Hepatomegaly: INR slightly elevated 1.15 with elevated bilirubin, 1.6. Lipase elevated as well, reports no abdominal pain or nausea. No lesions noted to pancreas or Liver. Mild splenomegaly noted on CT as well. Consider malignancy. 4. Low back pain: Likely secondary to sacral lesion and compression fractures. Pain control currently with pain medication. VTE: SCDs due to acute bleeding Dispo: 1-2 days pending improvement.
[2017-04-27] MEDS: Pantoprazole 40 MG Vial IVPUSH SCH ×2 (08:40→20:15)
[2017-04-27] MEDS ORDERED: Potassium Chloride 20 MEQ Tab.ER PO ONE (08:57)
[2017-04-27] MEDS ORDERED: Morphine 2 MG/ML Syringe IVPUSH PRN (18:24)
[2017-04-27] MEDS ORDERED: oxyCODONE 5 MG Tab PO PRN (18:25)
[2017-04-27] MEDS ORDERED: hydrALAZINE 20 MG/ML SDV IVPUSH ONE (19:19)
[2017-04-28] MEDS: Sodium Chloride 0.9% 1,000 ML IV SCH (04:03)
[2017-04-28 08:22] VITALS: BP 154/99
[2017-04-28] MEDS: Pantoprazole 40 MG Vial IVPUSH SCH (08:50)
[2017-04-28] MEDS ORDERED: amLODIPine 5 MG Tab PO SCH (10:00)
--- NOTE | 2017-04-28 11:57 | PCM.DCSUM1 ---
Discharge Summary - Hospital Course Brief History: This 51 year old otherwise healthy male presented to the ED last evening with concerns of lytic lesion to L sacrum after having CT of abd/pelvis in clinic. He reports low back pain started a little before [place] and has slowly worsened. Many of the medications he has tried haven't worked well. These include Ibuprofen, muscle relaxer, and Gabapentin. He also reports having a nagging nose bleed, which has been intermittent since this time as well. He denies trauma to his nose. He denies vomiting blood, but reports he has been swallowing a lot and sniffling. She reports coming to the ED around [place] for a nose bleed, but the second they got outside it stopped and also constipation due to [place]. he was treated with Mag Citrate. He reports then having many BM's and his noted his rectum was very large and filled with stool and noticed elma blood as well. They also report hematuria, which they saw PCP Apr 07 for, which they suspected kidney stone at that time. He reports having some changes in bowel habits, but some of these are explained by starting of pain medications. He denies having a colonoscopy for screening. In the ED, WBC 12,510, hgb 7.1 platelets 136. BUN 58, Cr 2.2. BP 140-160.90s and HR 70-90s. CT of abdomen/pelvis revealed "marked hepatomegaly without mass lesion, Mild splenomegaly, Bilateral renal cysts without calcified urolithiasis , hydronephrosis or ureteral obstruction, 4.2 cm lytic mass left side of the sacrum suspicious for neoplasia. Moderate T12 compression fracture which may be pathologic as there is some lucency in the posterior aspect of the T12 vertebral body. A small 9 mm lucency seen posterior right aspect of T11. Ascites with presacral edema, The sigmoid colon is decompressed. Questionable circumferential wall thickening of the rectosigmoid junction, Scrotal edema." He was admitted due to back pain and anemia. - Discharge Data Discharge Date: 04/28/17 Discharge Disposition: Home, Self-Care 01 Condition: Stable - Discharge Diagnosis/Problem(s) (1) Anemia SNOMED Code(s): 106631134 ICD Code: D64.9 - ANEMIA, UNSPECIFIED Status: Acute Current Visit: Yes Qualifiers: Anemia type: iron deficiency Iron deficiency anemia type: chronic blood loss Qualified Code(s): D50.0 - Iron deficiency anemia secondary to blood loss (chronic) (2) Sacral lesion SNOMED Code(s): 59473182 ICD Code: M53.3 - SACROCOCCYGEAL DISORDERS, NOT ELSEWHERE CLASSIFIED Status : Acute Priority: High Current Visit: Yes (3) Low back pain SNOMED Code(s): 714367931 ICD Code: M54.5 - LOW BACK PAIN Status: Acute Priority: Medium Current Visit: Yes Qualifiers: Back pain laterality: unspecified (4) Compression fracture of T12 vertebra SNOMED Code(s): 249323219 ICD Code: S22.080A - WEDGE COMPRESSION FRACTURE OF T11-T12 VERTEBRA, INIT Status: Acute Priority: Medium Current Visit: Yes (5) Hepatomegaly SNOMED Code(s): 16476275 ICD Code: R16.0 - HEPATOMEGALY, NOT ELSEWHERE CLASSIFIED Status: Acute Priority: Medium Current Visit: Yes (6) Epistaxis SNOMED Code(s): 324141014 ICD Code: R04.0 - EPISTAXIS Status: Acute Current Visit: No (7) Hypercalcemia SNOMED Code(s): 85998857 ICD Code: E83.52 - HYPERCALCEMIA Status: Acute Current Visit: Yes - Patient Instructions Diet: Regular Diet as Tolerated Activity: No Strenuous Activities Driving: Do Not Drive Showering/Bathing: May Shower Notify Provider of: Fever, Increased Pain, Swelling and Redness, Drainage, Nausea and/or Vomiting Other/Special Instructions: No NSAIDS (this includes, aspirin, ibuprofen, Aleve , Advil, Motrin) - Discharge Plan Prescriptions/Med Rec: Acetaminophen/HYDROcodone [[place] 325-5 MG] 1 tab PO Q4H PRN #30 tablet PRN Reason: Pain amLODIPine [Norvasc] 5 mg PO DAILY #30 tablet Docusate Sodium [Colace] 100 mg PO DAILY #60 cap Home Medications: Home Meds Gabapentin [Neurontin] 100 mg PO BID 04/21/17 [History] Acetaminophen/HYDROcodone [[place] 325-5 MG] 1 tab PO Q4H PRN #30 tablet 04/28/17 [Rx] Docusate Sodium [Colace] 100 mg PO DAILY #60 cap 04/28/17 [Rx] Polyethylene Glycol 3350 [MiraLAX] 17 gm PO Q72H PRN #30 packet 04/28/17 [Rx] amLODIPine [Norvasc] 5 mg PO DAILY #30 tablet 04/28/17 [Rx] Patient Handouts: Acetaminophen; Hydrocodone tablets or capsules, Anemia, Nonspecific, Hepatomegaly, [id number], Amlodipine tablets, Docusate capsules Referrals: Leo Deshpande MD [Resident] - 05/02/17 2:30 pm Daniel Tom MD [Ordering Only Provider] - 05/01/17 3:00 pm - Discharge Summary/Plan Comment DC Time >30 min.: No Discharge Summary/Plan Comment: Discharge Diagnoses: Suspected Multiple myeloma Anemia Hypercalcemia sacral lesion low back pain compression fractures T11-12 hepatomegaly splenomegaly Epistaxis- resolved Hematuria-improved to light pink Anthony was admitted due to new sacral lesion found on CT of abd/pelvis along with new onset anemia. At home he was noted to be having intermittent epistaxis as well as hematuria, which were both new. reports him being very tired and sleeping a lot as well. He also reported extreme fatigue. Upon admission, iron studies obtained, which suggested acute blood loss. Peripheral smear ordered as well due to sacral lesion. This returned 04/27/2017, which is highly suspicious for multiple myeloma. Dr. Elma Lee , pathology is sending this sample on for further evaluation from [place] and suggested running protein electrophoresis with immunofixation, which was ordered and sent out this morning. Anthony was transfused a total of 4 units PRBCs, Hgb is now stable at 9.2 with improvement in bleeding. He is very anxious to be discharged home. On admission hypercalcemia noted to be 17.7, with fluid resuscitation this has improved to 13.7 today, he is asymptomatic. We were able to arrange bone marrow biopsy for may [address] All Gracia and after talking with Oncology, we were able to get him scheduled to see Dr. Tom,Oncology, this May 01 at 3:00 pm. he also has follow up PCP, Dr Deshpande this Friday as well May 02 for quick follow up due to bleeding and the need to monitor Hgb as well as calcium. and patient are aware of all appointments. reports her sister will be there with them for support and extra ears for all the appointments. Anthony is feeling better today. He did notice a itchy rash to bilateral feet, this rash is peticheal is nature, and itchy. 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 No other findings to body except for bilateral feet. He denies chest pain or SOB. Hypertension noted and he was started on small dose of Amlodipine 5 mg daily and encouraged to monitor this daily at home, verbalizes understanding. He will be sent home with [place] for back pain along with daily colace to prevent constipation and Miralax every 3 days if no BM. He was encouraged to be off work until further notice and should refrain from driving due to illness and narcotics. hemoccult was positive during stay, but GI bleed non suspected due to him having frequent nose bleeds and reporting he was just swallowing all the blood. No elma blood BMs noted. Him and educated on signs of low hemoglobin and when she should bring him back to the ED or call the clinic. All questions and concerns addressed at this time. They are to return to clinic of ED if concerns should arise. - General Info Date of Service: 04/28/17 Admission Dx/Problem (Free Text: Admission Diagnosis/Problem Admission Diagnosis/Problem Blood coagulation disorder Subjective Update: Anthony reports feeling better today, continues to be sleepy, which reports has been ongoing for the last month or so. He denies chest pain or SOB. reports itchy rash to bilateral feet. No leg pain and back pain is managed. Functional Status: Reports: Pain Controlled, Tolerating Diet, Ambulating, Urinating - Review of Systems HEENT: Reports: No Symptoms. Denies: Headaches, Sore Throat, Rhinitis Pulmonary: Reports: No Symptoms. Denies: Shortness of Breath, Cough, Sputum Cardiovascular: Denies: No Symptoms, Chest Pain, Palpitations, Edema Gastrointestinal: Reports: No Symptoms. Denies: Abdominal Pain, Nausea, Vomiting Genitourinary: Reports: No Symptoms. Denies: Dysuria, Frequency, Burning Skin: Reports: Rash (bilateral feet) Neurological: Reports: No Symptoms. Denies: Confusion Psychiatric: Reports: No Symptoms. Denies: Confusion - Patient Data Vitals - Most Recent: Last Vital Signs Temp 98.8 F 04/28/17 08:00 Pulse 77 04/28/17 08:00 Resp 18 04/28/17 08:00 BP 154/99 H 04/28/17 10:00 Pulse Ox 95 04/28/17 08:00 Weight - Most Recent: 59.421 kg I&O - Last 24 hours: Intake & Output 04/27/17 04/28/17 04/28/17 22:59 06:59 14:59 Intake Total 693 2340 Output Total 1800 3000 Balance -1107 -660 Lab Results - Last 24 hrs: Laboratory Results - last 24 hr 04/28/17 04/28/17 Range/Units 04:53 04:53 WBC 9.30 (4.0-11.0) K/uL RBC 3.00 L (4.50-5.90) M/uL Hgb 9.2 L (13.0-17.0) g/dL Hct 27.6 L (38.0-50.0) % MCV 92.0 (80.0-98.0) fL MCH 30.7 (27.0-32.0) pg MCHC 33.3 (31.0-37.0) g/dL RDW Std Deviation 64.1 H (28.0-62.0) fl RDW Coeff of Francis 20 H (11.0-15.0) % Plt Count 160 (150-400) K/uL MPV 9.40 (7.40-12.00) fL Add Manual Diff YES Nucleated RBC % 1.7 /100WBC Nucleated RBCs # 0 K/uL Sodium 140 (136-146) mmol/L Potassium 3.6 (3.5-5.1) mmol/L Chloride 105 (98-110) mmol/L Carbon Dioxide 21 (21-31) mmol/L BUN 33 H (6.0-23.0) mg/dL Creatinine 2.2 H (0.6-1.5) mg/dL Est Cr Clr Drug Dosing 33.39 mL/min Estimated GFR (MDRD) 31.7 ml/min Glucose 90 (60-110) mg/dL Calcium 13.7 H (8.8-10.8) mg/dL Total Bilirubin 2.0 H (0.1-1.5) mg/dL AST 40 (5-40) IU/L ALT 32 (8-54) IU/L Alkaline Phosphatase 132 (40-150) Total Protein 12.4 H (6.0-8.0) g/dL Albumin 2.2 L (3.5-5.0) g/dL Globulin 10.2 H (2.0-3.5) g/dL Albumin/Globulin Ratio 0.22 Med Orders - Current: Current Medications Acetaminophen (Tylenol) 650 mg PO Q4H PRN PRN Reason: Pain (Mild 1-3)/fever Last Admin: 04/26/17 20:42 Dose: 650 mg Amlodipine Besylate (Norvasc) 5 mg PO DAILY [facility] Last Admin: 04/28/17 10:00 Dose: 5 mg Docusate Sodium (Colace) 100 mg PO BID PRN PRN Reason: Constipation Sodium Chloride (Normal Saline) 1,000 mls @ 125 mls/hr IV ASDIRECTED [facility] Last Admin: 04/28/17 04:03 Dose: 125 mls/hr Morphine Sulfate (Morphine) 2 mg IVPUSH Q2H PRN PRN Reason: Pain Last Admin: 04/27/17 20:06 Dose: 2 mg Oxycodone HCl (Oxycodone) 5 mg PO Q4H PRN PRN Reason: Pain Pantoprazole Sodium (Protonix Iv) 80 mg IVPUSH BID [facility] Last Admin: 04/28/17 08:50 Dose: 80 mg Discontinued Medications Hydralazine HCl (Apresoline) 10 mg IVPUSH ONETIME ONE Stop: 04/26/17 21:04 Last Admin: 04/26/17 21:48 Dose: 10 mg Hydralazine HCl (Apresoline) 10 mg IVPUSH ONETIME ONE Stop: 04/27/17 19:20 Last Admin: 04/27/17 20:12 Dose: 10 mg Sodium Chloride (Normal Saline) 1,000 mls @ 999 mls/hr IV STAT ONE Stop: 04/24/17 22:41 Last Admin: 04/24/17 22:05 Dose: 999 mls/hr Oxycodone HCl (Oxycodone) 5 mg PO Q4H PRN PRN Reason: Pain (moderate 4-6) Last Admin: 04/26/17 23:37 Dose: 5 mg Potassium Chloride (Klor-Con M20) 40 meq PO ONETIME ONE Stop: 04/27/17 08:58 Last Admin: 04/27/17 10:29 Dose: 40 meq - Exam General: Reports: Alert, Oriented, Cooperative, No Acute Distress, Other ( easily falls asleep in chair during interview with providers) HEENT: Reports: Pupils Equal, Pupils Reactive, Mucous Membr. Moist/[place], Other ( no neck pain and no nuchal rigidity) Neck: Reports: Supple Lungs: Reports: Clear to Auscultation, Normal Respiratory Effort Cardiovascular: Reports: Regular Rate, Regular Rhythm GI/Abdominal Exam: Normal Bowel Sounds, Soft, Non-Tender, No Organomegaly, No Distention, No Abnormal Bruit, No Mass, Pelvis Stable Back Exam: Reports: Normal Inspection, Decreased Range of Motion (compression fractures to t11-t12) Skin: Reports: Rash (peticheal rash to bilateral feet. No swelling no cyanosis) Neurological: Reports: No New Focal Deficit Psy/Mental Status: Reports: Alert, Normal Affect, Normal Mood *Q Meaningful Use (DIS) - VTE *Q VTE Criteria *Q: - Stroke *Q Stroke Criteria *Q: - AMI *Q AMI Criteria *Q:
== END 2017-04-28 16:30 | disposition home or self-care (01) | DRG 347 ==
LOC: MW.ED 21:19 → MW.MS 23:10
PROVIDERS: ADMIT Family Medicine; ATTEND Family Medicine
PROC: 30233N1 Transfusion of Nonautologous Red Blood Cells into Peripheral Vein, Percutaneous Approach (ICD-10-PCS; principal; 2017-04-25)
DX: M53.3 Sacrococcygeal disorders, not elsewhere classified (principal); D64.9 Anemia, unspecified; C90.00 Multiple myeloma not having achieved remission; E83.52 Hypercalcemia; M54.5 Low back pain; S22.080A Wedge compression fracture of T11-T12 vertebra, initial encounter for closed fracture; R04.0 Epistaxis; R16.2 Hepatomegaly with splenomegaly, not elsewhere classified; R31.9 Hematuria, unspecified; R21 Rash and other nonspecific skin eruption; D68.9 Coagulation defect, unspecified; Z79.899 Other long term (current) drug therapy; R10.9 Unspecified abdominal pain; R16.1 Splenomegaly, not elsewhere classified; N28.1 Cyst of kidney, acquired; R18.8 Other ascites; N50.89 Other specified disorders of the male genital organs
CPT/HCPCS: 36415; 36430; 74178; 74178-26; 80048; 80053; 81001; 82150; 82272; 82607; 82728; 82746; 83550; 83690; 83735; 84165; 85014; 85018; 85025; 85045; 85610; 86334; 86850; 86900; 86901; 86920; 86921; 86922; 87086; 88104; 96360; 99284; 99284-25; A9270-GY; C9113; J0360; J2270; J7040; P9016; Q9967

== ENCOUNTER 2017-04-30 08:30 | Inpatient (IN) | payer BC ==
[2017-04-30] MEDS ORDERED: Lidocaine 1% with EPINEPHrine 1:100,000 20 ML MDV INJECT ONE (08:44)
[2017-04-30] MEDS ORDERED: Lidocaine 1% 20 ML MDV ONE (09:01)
[2017-04-30] MEDS ORDERED: Sodium Chloride 0.9% 2.5 ML Syringe FLUSH PRN (09:03)
[2017-04-30] MEDS ORDERED: Sodium Chloride 0.9% 10 ML Syringe FLUSH PRN (09:03)
[2017-04-30] MEDS ORDERED: Metoprolol Tartrate 5 MG/5 ML SDV IVPUSH ONE (09:04)
--- NOTE | 2017-04-30 09:05 | EDM.PDOC ---
ED HPI GENERAL MEDICAL PROBLEM - General Chief Complaint: ENT Problem Stated Complaint: NOSE BLEED Time Seen by Provider: 04/30/17 08:39 Source of Information: Reports: Patient History Limitations: Reports: No Limitations - History of Present Illness INITIAL COMMENTS - FREE TEXT/NARRATIVE: History of present illness: []Patient was just discharged from the hospital after being diagnosed with multiple myeloma and intermittent nosebleed. He presents with bleeding from his left nares since last night. Bleeding is slow and dripping. No clots or profuse bleeding at any time. He has an appointment to see an oncologist tomorrow. She does feel extremely weak and is short of breath. Review of systems: As per history of present illness and below otherwise all systems reviewed and negative. Past medical history: As per history of present illness and as reviewed below otherwise noncontributory. Surgical history: As per history of present illness and as reviewed below otherwise noncontributory. Social history: No reported history of drug or alcohol abuse. Family history: As per history of present illness and as reviewed below otherwise noncontributory. Physical exam: General: Well developed, well nourished and appears a weak and ill-appearing HEENT: Slow active bleeding through left nares, lips are dry and cracked with dried blood, normocephalic, pupils reactive, r conjunctival pallor and scleral icterus is present, mucous membranes moist, throat clear, neck supple, nontender , trachea midline. Lungs: Clear to auscultation, breath sounds equal bilaterally, chest nontender. Crackles at bases. Some Accessory muscle use is present there is no respiratory distress Heart: S1S2, regular, negative for clicks, rubs, or JVD. Abdomen: Soft, nondistended, nontender. Negative for masses or hepatosplenomegaly. Negative for costovertebral tenderness. Pelvis: Stable nontender. Genitourinary: Deferred. Rectal: Deferred. Extremities: Atraumatic, negative for cords or calf pain. Neurovascular unremarkable. Neuro: Somnolent. Cranial nerves II through XII unremarkable. Cerebellum unremarkable. Motor and sensory unremarkable throughout. Exam nonfocal. Diagnostics: []CBC shows elevated white count and H&H has decreased 12/14, blood cultures done , chest x-ray shows no obvious sign of pneumonia at this time, Therapeutics: []Left nares was packed with a Rhino Rocket balloon was inflated Impression: []Multiple myeloma, anemia, epistaxis, early pneumonia Plan: []Consulted Dr. Lee who saw this patient in the ED and will be admitting him for blood transfusion and further workup. Definitive disposition and diagnosis as appropriate pending reevaluation and review of above. MidBack Pain Score (Numeric/FACES): 10 - Related Data Allergies Allergy/AdvReac Type Severity Reaction Status Date / Time No Known Allergies Allergy Verified 04/30/17 08:47 Home Meds: Home Meds Docusate Sodium [Colace] 100 mg PO DAILY #60 cap 04/28/17 [Rx] amLODIPine [Norvasc] 5 mg PO DAILY #30 tablet 04/28/17 [Rx] Acetaminophen/HYDROcodone [[place] 325-5 MG] 2 tab PO Q4H PRN 04/30/17 [History] Polyethylene Glycol 3350 [MiraLAX] 17 gm PO BEDTIME PRN 04/30/17 [History] Past Medical History HEENT History: Reports: None Cardiovascular History: Reports: None Respiratory History: Reports: None Gastrointestinal History: Reports: Chronic Constipation Musculoskeletal History: Reports: Fracture Neurological History: Reports: None Psychiatric History: Reports: None Endocrine/Metabolic History: Reports: None Hematologic History: Reports: None Oncologic (Cancer) History: Reports: Other (See Below) Other Oncologic History: sacal neoplasm - Infectious Disease History Infectious Disease History: Reports: Chicken Pox - Past Surgical History GI Surgical History: Reports: Appendectomy Male Surgical History: Reports: None Musculoskeletal Surgical History: Reports: Other (See Below) Other Musculoskeletal Surgeries/Procedures:: Tibial Plateau Fracture Social & Family History - Family History Family Medical History: Noncontributory - Tobacco Use Smoking Status *Q: Current Status Unknown Second Hand Smoke Exposure: No - Caffeine Use Caffeine Use: Reports: Soda - Alcohol Use Days Per Week of Alcohol Use: 0 - Recreational Drug Use Recreational Drug Use: No - Living Situation & Occupation Living situation: Reports: Occupation: Employed (Works at [employer]) ED ROS GENERAL - Review of Systems Review Of Systems: See Below (See history of present illness) ED EXAM, GENERAL - Physical Exam Exam: See Below (See history of present illness) Course - Vital Signs Last Recorded V/S: Last Vital Signs Temp 98.1 F 04/30/17 17:32 Pulse 112 H 04/30/17 17:32 Resp 20 04/30/17 17:32 BP 176/109 H 04/30/17 17:32 Pulse Ox 95 04/30/17 17:32 - Orders/Labs/Meds Orders: Active Orders 24 hr Category Date Time Status CULTURE BLOOD [BC] Stat Lab 04/30/17 11:20 Received CULTURE BLOOD [BC] Stat Lab 04/30/17 11:34 Received Sodium Chloride 0.9% [Saline Flush] Med 04/30/17 09:03 Active 10 ml FLUSH ASDIRECTED PRN Sodium Chloride 0.9% [Saline Flush] Med 04/30/17 09:03 Active 2.5 ml FLUSH ASDIRECTED PRN Blood Culture x2 Reflex Set [OM.PC] Stat Ot 04/30/17 10:05 Ordered Saline Lock Insert [OM.PC] Stat Ot 04/30/17 09:03 Ordered Transfuse RBC [Transfuse Red Blood Cells] [COMM] Stat Ot 04/30/17 10:04 Ordered Medication Orders Acetaminophen (Tylenol) 650 mg PO Q4H PRN PRN Reason: Allergies Hydrocodone Bitart/Acetaminophen ([place] 325-5 Mg) 1 tab PO Q4H PRN PRN Reason: Pain Last Admin: 04/30/17 15:44 Dose: 1 tab Albuterol/Ipratropium (Duoneb 3.0-0.5 Mg/3 Ml) 3 ml NEB Q4HRRT [facility] Last Admin: 04/30/17 17:37 Dose: 3 ml Admin: 04/30/17 13:59 Dose: 3 ml Amlodipine Besylate (Norvasc) 5 mg PO DAILY [facility] Last Admin: 04/30/17 15:44 Dose: 5 mg Docusate Sodium (Colace) 100 mg PO DAILY [facility] Levofloxacin/Dextrose 750 mg/ (Premix) 150 mls @ 100 mls/hr IV Q24H [facility] Last Admin: 04/30/17 12:34 Dose: 100 mls/hr Sodium Chloride (Normal Saline) 1,000 mls @ 125 mls/hr IV ASDIRECTED [facility] Last Admin: 04/30/17 12:46 Dose: 125 mls/hr Vancomycin HCl 1 gm/ Sodium (Chloride) 250 mls @ 250 mls/hr IV Q12H [facility] Last Admin: 04/30/17 14:18 Dose: 250 mls/hr Cefepime HCl 2 gm/ Premix 50 mls @ 100 mls/hr IV Q12H [facility] Last Admin: 04/30/17 13:02 Dose: 100 mls/hr Lorazepam (Ativan) 0.5 mg PO Q6H PRN PRN Reason: Anxiety Last Admin: 04/30/17 17:37 Dose: 0.5 mg Ondansetron HCl (Zofran) 4 mg IVPUSH Q4H PRN PRN Reason: Nausea Oseltamivir Phosphate (Tamiflu) 30 mg PO BID [facility] Last Admin: 04/30/17 13:17 Dose: 5 ml Sodium Chloride (Saline Flush) 10 ml FLUSH ASDIRECTED PRN PRN Reason: Keep Vein Open Last Admin: 04/30/17 09:31 Dose: 10 ml Sodium Chloride (Saline Flush) 2.5 ml FLUSH ASDIRECTED PRN PRN Reason: Keep Vein Open Last Admin: 04/30/17 09:32 Dose: 2.5 ml Sodium Chloride ([place] Nasal [place]) 3 - 4 ml CALOS Q4H [facility] Last Admin: 04/30/17 15:45 Dose: 4 drop Vancomycin HCl (Pharmacy To Dose - Vancomycin) 1 dose .XX ASDIRECTED [facility] Labs: Laboratory Tests 04/30/17 04/30/17 04/30/17 Range/Units 08:51 08:51 08:51 WBC 17.04 H (4.0-11.0) K/uL RBC 2.84 L (4.50-5.90) M/uL Hgb 8.6 L (13.0-17.0) g/dL Hct 26.2 L (38.0-50.0) % MCV 92.3 (80.0-98.0) fL MCH 30.3 (27.0-32.0) pg MCHC 32.8 (31.0-37.0) g/dL RDW Std Deviation 64.9 H (28.0-62.0) fl RDW Coeff of Francis 19 H (11.0-15.0) % Plt Count 158 (150-400) K/uL MPV 9.40 (7.40-12.00) fL Add Manual Diff YES Neutrophils % (Manual) 45 L (48.0-80.0) % Band Neutrophils % 10 % Lymphocytes % (Manual) 32 (16.0-40.0) % Monocytes % (Manual) 4 (0.0-15.0) % Plasma Cell % (Manual) 9 Nucleated RBC % 0.8 /100WBC Absolute Seg Neuts 7.7 H (1.4-5.7) Band Neutrophils # 1.7 Lymphocytes # (Manual) 5.5 H (0.6-2.4) Monocytes # (Manual) 0.7 (0.0-0.8) Nucleated RBCs # 0 K/uL Sodium 137 (136-146) mmol/L Potassium 3.6 (3.5-5.1) mmol/L Chloride 100 (98-110) mmol/L Carbon Dioxide 18 L (21-31) mmol/L BUN 36 H (6.0-23.0) mg/dL Creatinine 1.6 H (0.6-1.5) mg/dL Est Cr Clr Drug Dosing TNP Estimated GFR (MDRD) 45.8 ml/min Glucose 110 (60-110) mg/dL Calcium 12.8 H (8.8-10.8) mg/dL Total Bilirubin 2.0 H (0.1-1.5) mg/dL AST 35 (5-40) IU/L ALT 29 (8-54) IU/L Alkaline Phosphatase 128 (40-150) Total Protein 9.6 H (6.0-8.0) g/dL Albumin 1.8 L (3.5-5.0) g/dL Globulin 7.8 H (2.0-3.5) g/dL Albumin/Globulin Ratio 0.2 L (1.3-2.8) Blood Type A POSITIVE Antibody Screen POSITIVE Prewarmed Antibody Srcn NEGATIVE Antibody Identification Cancelled Cold Antibody Screen POSITIVE Crossmatch Prewarmed See Detail Meds: Medications Generic Name Dose Route Start Last Admin Trade Name Freq PRN Reason Stop Dose Admin Acetaminophen 650 mg 04/30/17 13:10 Tylenol PO Q4H PRN Allergies Hydrocodone Bitart/Acetaminophen 1 tab 04/30/17 15:27 04/30/17 15:44 [place] 325-5 Mg PO 1 tab Q4H PRN Administration Pain Albuterol/Ipratropium 3 ml 04/30/17 14:00 04/30/17 17:37 Duoneb 3.0-0.5 Mg/3 Ml NEB 3 ml Q4HRRT [facility] Administration Amlodipine Besylate 5 mg 04/30/17 15:30 04/30/17 15:44 Norvasc PO 5 mg DAILY [facility] Administration Docusate Sodium 100 mg 05/01/17 09:00 Colace PO DAILY [facility] Levofloxacin/Dextrose 750 mg/ 150 mls @ 100 mls/hr 04/30/17 12:15 04/30/17 12 :34 Premix IV 100 mls/hr Q24H [facility] Administration Sodium Chloride 1,000 mls @ 125 mls/hr 04/30/17 12:45 04/30/17 12:46 Normal Saline IV 125 mls/hr ASDIRECTED [facility] Administration Vancomycin HCl 1 gm/ Sodium 250 mls @ 250 mls/hr 04/30/17 14:00 04/30/17 14: 18 Chloride IV 250 mls/hr Q12H [facility] Administration Cefepime HCl 2 gm/ Premix 50 mls @ 100 mls/hr 04/30/17 13:00 04/30/17 13:02 IV 100 mls/hr Q12H [facility] Administration Lorazepam 0.5 mg 04/30/17 15:29 04/30/17 17:37 Ativan PO 0.5 mg Q6H PRN Administration Anxiety Ondansetron HCl 4 mg 04/30/17 13:10 Zofran IVPUSH Q4H PRN Nausea Oseltamivir Phosphate 30 mg 04/30/17 13:03 04/30/17 13:17 Tamiflu PO 5 ml BID [facility] Administration Sodium Chloride 10 ml 04/30/17 09:03 04/30/17 09:31 Saline Flush FLUSH 10 ml ASDIRECTED PRN Administration Keep Vein Open Sodium Chloride 2.5 ml 04/30/17 09:03 04/30/17 09:32 Saline Flush FLUSH 2.5 ml ASDIRECTED PRN Administration Keep Vein Open Sodium Chloride 3 - 4 ml 04/30/17 15:30 04/30/17 15:45 [place] Nasal [place] CALOS 4 drop Q4H [facility] Administration Vancomycin HCl 1 dose 04/30/17 12:45 Pharmacy To Dose - Vancomycin .XX ASDIRECTED [facility] Discontinued Medications Generic Name Dose Route Start Last Admin Trade Name Freq PRN Reason Stop Dose Admin Sodium Chloride 1,000 mls @ 999 mls/hr 04/30/17 12:33 04/30/17 12:39 Normal Saline IV 04/30/17 13:33 999 mls/hr .Bolus ONE Administration Piperacillin Sod/Tazobactam 100 mls @ 100 mls/hr 04/30/17 12:45 Sod 4.5 gm/ Sodium Chloride IV Q6H [facility] Cefepime HCl 2 gm/ Premix 50 mls @ 100 mls/hr 04/30/17 13:00 IV Q8H [facility] Lidocaine HCl Confirm 04/30/17 09:01 04/30/17 09:32 Xylocaine 1% Administered 04/30/17 09:02 20 ml Dose Administration 20 ml .ROUTE .STK-MED ONE Lidocaine/Epinephrine 20 ml 04/30/17 08:44 04/30/17 10:41 Xylocaine 1% With Epinephrine 1:100,000 INJECT 04/30/17 08:45 Not Given ONETIME ONE Metoprolol Tartrate 5 mg 04/30/17 09:04 04/30/17 10:40 Lopressor IVPUSH 04/30/17 09:05 Not Given ONETIME ONE Departure - Departure Time of Disposition: 11:40 Disposition: Admitted As Inpatient 66 Condition: Poor, Serious Clinical Impression: Epistaxis, Pneumonia Multiple myeloma Qualifiers: Multiple myeloma remission status: not in remission Qualified Code(s): C90.00 - Multiple myeloma not having achieved remission Anemia Qualifiers: Anemia type: iron deficiency Iron deficiency anemia type: chronic blood loss Qualified Code(s): D50.0 - Iron deficiency anemia secondary to blood loss ( chronic) - Discharge Information - My Orders Last 24 Hours: My Active Orders 04/30/17 09:03 Sodium Chloride 0.9% [Saline Flush] 10 ml FLUSH ASDIRECTED PRN Sodium Chloride 0.9% [Saline Flush] 2.5 ml FLUSH ASDIRECTED PRN Saline Lock Insert [OM.PC] Stat 04/30/17 10:04 Transfuse RBC [Transfuse Red Blood Cells] [COMM] Stat 04/30/17 10:05 Blood Culture x2 Reflex Set [OM.PC] Stat 04/30/17 11:20 CULTURE BLOOD [BC] Stat 04/30/17 11:34 CULTURE BLOOD [BC] Stat - Assessment/Plan Last 24 Hours: My Active Orders 04/30/17 09:03 Sodium Chloride 0.9% [Saline Flush] 10 ml FLUSH ASDIRECTED PRN Sodium Chloride 0.9% [Saline Flush] 2.5 ml FLUSH ASDIRECTED PRN Saline Lock Insert [OM.PC] Stat 04/30/17 10:04 Transfuse RBC [Transfuse Red Blood Cells] [COMM] Stat 04/30/17 10:05 Blood Culture x2 Reflex Set [OM.PC] Stat 04/30/17 11:20 CULTURE BLOOD [BC] Stat 04/30/17 11:34 CULTURE BLOOD [BC] Stat
[2017-04-30 09:56] LABS: CHLORIDE,CL 100 mmol/L (98-110); SODIUM,NA 137 mmol/L (136-146)
--- NOTE | 2017-04-30 09:57 | CR ---
EXAMINATION: Portable chest radiograph. HISTORY: Shortness of breath. FINDINGS: The trachea is midline. The cardiomediastinal silhouette is within normal limits. No pulmonary infilt rates, effusions or pneumothorax. Osseous structures appear unremarkable. IMPRESSION: No acute cardiopulmonary process.
--- NOTE | 2017-04-30 11:57 | PCM.HP ---
H&P History of Present Illness - General Date of Service: 04/30/17 Admit Problem/Dx: Admission Diagnosis/Problem Admission Diagnosis/Problem Multiple myeloma Source of Information: Patient, Family, Old Records History Limitations: Reports: No Limitations - History of Present Illness Initial Comments - Free Text/Narative: This 51 year old male with likely multiple myeloma. He was recently discharged from the hospital FridayApril 29 after being admitted for new onset anemia. Pathology per peripheral smear suggests multiple myeloma. Prior to admission, he had complained of hematuria and epistaxis, but during stay he had no epistaxis and with blood transfusion, hemaurtia was resolving and urine was light pink by the time he was discharged. not in room during interview. Patient lethargic and sleepy laying in the bed. He reports nose bleed started about 1 day ago and has been dripping intermittently. In ED his L nare was packed with rhino rocket with lidocaine and epi. In the ED, leukocytosis noted at 17,000. Hgb 8.6, it was 9.2 on discharge on Friday. Platelets 158, BUN 36, Cr 1.6, Bili 2.0. Lactate unable to be done due to high serum protein. CXR was negative, but due to recent hospitalization, tachycardia cough and shortness of breath pneumonia is suspected. He will be admitted for epistaxis and suspected gram negative pneumonia. MidBack Pain Score (Numeric/FACES): 10 - Related Data Allergies/Adverse Reactions: Allergies Allergy/AdvReac Type Severity Reaction Status Date / Time No Known Allergies Allergy Verified 04/30/17 08:47 Home Medications: Home Meds Docusate Sodium [Colace] 100 mg PO DAILY #60 cap 04/28/17 [Rx] amLODIPine [Norvasc] 5 mg PO DAILY #30 tablet 04/28/17 [Rx] Acetaminophen/HYDROcodone [[place] 325-5 MG] 5 tab PO Q4H PRN 04/30/17 [History] Polyethylene Glycol 3350 [MiraLAX] 17 gm PO BEDTIME PRN 04/30/17 [History] Past Medical History HEENT History: Reports: None Cardiovascular History: Reports: Hypertension (recently diagnosed) Respiratory History: Reports: None Gastrointestinal History: Reports: Chronic Constipation Musculoskeletal History: Reports: Fracture Neurological History: Reports: None Psychiatric History: Reports: None Endocrine/Metabolic History: Reports: None Hematologic History: Reports: None Oncologic (Cancer) History: Reports: Other (See Below) Other Oncologic History: sacral mass, multiple myeloma - Infectious Disease History Infectious Disease History: Reports: Chicken Pox - Past Surgical History GI Surgical History: Reports: Appendectomy Male Surgical History: Reports: None Musculoskeletal Surgical History: Reports: Other (See Below) Other Musculoskeletal Surgeries/Procedures:: Tibial Plateau Fracture Social & Family History - Family History Family Medical History: Noncontributory - Tobacco Use Smoking Status *Q: Current Status Unknown Second Hand Smoke Exposure: No - Caffeine Use Caffeine Use: Reports: Soda - Alcohol Use Days Per Week of Alcohol Use: 0 - Recreational Drug Use Recreational Drug Use: No - Living Situation & Occupation Living situation: Reports: Occupation: Employed (Works at [employer]) H&P Review of Systems - Review of Systems: Review Of Systems: See Below General: Reports: Weakness, Fatigue. Denies: Fever, Chills HEENT: Reports: Other (epistaxis) Pulmonary: Reports: Shortness of Breath, Cough. Denies: Sputum Cardiovascular: Reports: No Symptoms. Denies: Chest Pain, Palpitations, Lightheadedness Gastrointestinal: Reports: No Symptoms. Denies: Abdominal Pain, Black Stool, Bloody Stool, Nausea, Vomiting Genitourinary: Reports: Hematuria (l). Denies: Dysuria, Frequency, Burning Skin: Reports: No Symptoms Neurological: Reports: No Symptoms Hematologic/Lymphatic: Reports: Anemia, Easy Bleeding Immunologic: Reports: No Symptoms Exam - Exam Exam: See Below - Vital Signs Vital Signs: Last Vital Signs Temp 98.8 F 04/30/17 08:48 Pulse 82 04/30/17 10:55 Resp 18 04/30/17 10:55 BP 178/89 H 04/30/17 10:55 Pulse Ox 92 L 04/30/17 10:55 Weight: 60 kg - Exam Quality Assessment: Supplemental Oxygen, DVT Prophylaxis (SCDs only) General: Alert, Cooperative, Lethargic, Other (cachexia) HEENT: Pupils Equal, Pupils Reactive, Scleral Icterus. No: Mucosa Moist & Lydia (lips cracked with bloody scabs noted, blood noted to mouth and nares. Rhino rocket in place to L nare. ) Neck: Supple Lungs: Rhonchi (bilateral) Cardiovascular: Regular Rhythm, Normal S1, Normal S2, Tachycardia GI/Abdominal Exam: Normal Bowel Sounds, Soft, Non-Tender, No Distention, No Abnormal Bruit, No Mass, Pelvis Stable, Hepatomegaly, Splenomegaly Back Exam: Normal Inspection, Full Range of Motion, NT Extremities: Normal Inspection, Normal Range of Motion, Non-Tender, No Pedal Edema, Normal Capillary Refill Skin: Petechia ( noted to both arms by old IV and labwork sticks. 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, somewhat improved from discahrge.) Neuro Extensive - Mental Status: Alert, Oriented x3 Neuro Extensive - Motor, Sensory, Reflexes: CN II-XII Intact, Normal Reflexes Psychiatric: Alert, Normal Affect, Normal Mood - Patient Data Result Diagrams: 04/30/17 08:51 04/30/17 08:51 *Q Meaningful Use (ADM) - VTE *Q VTE Criteria *Q: - Stroke *Q Stroke Criteria *Q: - AMI *Q AMI Criteria *Q: - Problem List (1) Gram-negative pneumonia SNOMED Code(s): 596702768 ICD Code: J15.6 - PNEUMONIA DUE TO OTHER GRAM-NEGATIVE BACTERIA Status: Acute Current Visit: Yes (2) Multiple myeloma SNOMED Code(s): 329242633 ICD Code: C90.00 - MULTIPLE MYELOMA NOT HAVING ACHIEVED REMISSION Status: Acute Current Visit: Yes Qualifiers: Multiple myeloma remission status: not in remission Qualified Code(s): C90.00 - Multiple myeloma not having achieved remission (3) Anemia SNOMED Code(s): 447553818 ICD Code: D64.9 - ANEMIA, UNSPECIFIED Status: Acute Current Visit: No Qualifiers: Anemia type: iron deficiency Iron deficiency anemia type: chronic blood loss Qualified Code(s): D50.0 - Iron deficiency anemia secondary to blood loss (chronic) (4) Epistaxis SNOMED Code(s): 970509916 ICD Code: R04.0 - EPISTAXIS Status: Acute Current Visit: No (5) Compression fracture of T12 vertebra SNOMED Code(s): 581034973 ICD Code: S22.080A - WEDGE COMPRESSION FRACTURE OF T11-T12 VERTEBRA, INIT Status: Chronic Priority: Medium Current Visit: No (6) Hypercalcemia SNOMED Code(s): 73733751 ICD Code: E83.52 - HYPERCALCEMIA Status: Acute Current Visit: No (7) Hepatomegaly SNOMED Code(s): 60097790 ICD Code: R16.0 - HEPATOMEGALY, NOT ELSEWHERE CLASSIFIED Status: Chronic Priority: Medium Current Visit: No (8) Sacral lesion SNOMED Code(s): 54942119 ICD Code: M53.3 - SACROCOCCYGEAL DISORDERS, NOT ELSEWHERE CLASSIFIED Status : Chronic Priority: High Current Visit: No (9) Splenomegaly SNOMED Code(s): 10451649 ICD Code: R16.1 - SPLENOMEGALY, NOT ELSEWHERE CLASSIFIED Status: Chronic Current Visit: Yes Problem List Initiated/Reviewed/Updated: Yes Orders Last 24hrs: Active Orders 24 hr Category Date Time Status INFLUENZA A+B AG SCREEN [RM] Stat Lab 04/30/17 10:20 Uncollected RED BLOOD CELLS LP [BBK] Stat Lab 04/30/17 08:51 Results Medication Orders Sodium Chloride (Saline Flush) 10 ml FLUSH ASDIRECTED PRN PRN Reason: Keep Vein Open Last Admin: 04/30/17 09:31 Dose: 10 ml Sodium Chloride (Saline Flush) 2.5 ml FLUSH ASDIRECTED PRN PRN Reason: Keep Vein Open Last Admin: 04/30/17 09:32 Dose: 2.5 ml Assessment/Plan Comment:: This 51 year old male admitted with epistaxis and suspected gram negative pneumonia 1. Suspected Gram negative pneumonia: Gave 1 L bolus, patient is more alert now than on admission. Tachycardia continues, 100-115. ST will monitor. Will obtain Chest CT, CXR negative, does have rhonchi with SOB and cough. BC pending. Will obtain sputum culture and UA/UC. Will treat with broad spectrum antibiotics, Levaquin, Cefepime, Vanco. Suspected influenza, do not want to disrupt nasal mucosa. Will cover with Tamiflu 30 mg BID. 2. Epistaxis: Patient pulled rhino rocket out around 1400 today. No bleeding noted. Dr. Medrano consulted and will see patient this afternoon. 3. Multiple Myeloma: Has appointment with oncology tomorrow, will see if Dr. Tom will come see patient here to speak regarding treatment options. Has bone marrow biospy scheduled for FridayMay 05. 4. Anemia: Appears slightly dehydrated, will monitor Hgb. 1 unit PRBCs ordered in the ED, transfusing now. Will monitor. 5. Hypercalcemia: Monitor with IVF administration. 6. HTN: elevated, asymptomatic. Will monitor. Start Norvasc, he did not take it this morning. VTE prophylaxis: SCDs only. Dispo: 2-4 days pending improvement.
[2017-04-30] MEDS ORDERED: Sodium Chloride 0.9% 1,000 ML IV ONE (12:33)
[2017-04-30] MEDS: Levofloxacin/Dextrose 5%-Water 750 MG in Premix Bag 1 BAG IV SCH (12:34)
[2017-04-30] MEDS ORDERED: Piperacillin/Tazobactam 4.5 GM in Sodium Chloride 0.9% 100 ML IV SCH (12:45)
[2017-04-30] MEDS ORDERED: Cefepime 1 GM Vial IM SCH (12:45)
[2017-04-30] MEDS: Sodium Chloride 0.9% 1,000 ML IV SCH (12:46)
[2017-04-30] MEDS ORDERED: Cefepime 2 GM in Premix Bag 1 BAG IV SCH (13:00)
[2017-04-30] MEDS: Cefepime 2 GM in Premix Bag 1 BAG IV SCH (13:02)
[2017-04-30] MEDS ORDERED: Acetaminophen 325 MG Tab PO PRN (13:10)
[2017-04-30] MEDS ORDERED: Ondansetron 4 MG/2 ML SDV IVPUSH PRN (13:10)
[2017-04-30] MEDS: Oseltamivir 6 MG/ML Susp 60 ML Bot PO SCH ×2 (13:17→21:50)
[2017-04-30] MEDS: Albuterol/Ipratropium 3.0-0.5 MG/3 ML Neb Soln NEB SCH ×3 (13:59→21:50)
[2017-04-30] MEDS: amLODIPine 5 MG Tab PO SCH (15:44)
[2017-04-30] MEDS: Acetaminophen/HYDROcodone 325-5 MG Tab PO PRN ×2 (15:44→22:15)
[2017-04-30] MEDS: Sodium Chloride 0.65% Nasal Spray 45 ML Bottle NAS SCH ×3 (15:45→23:04)
[2017-04-30] MEDS: LORazepam 0.5 MG Tab PO PRN (17:37)
--- NOTE | 2017-04-30 22:24 | PCM.CONS ---
H&P History of Present Illness - General Date of Service: 04/30/17 Admit Problem/Dx: Admission Diagnosis/Problem Admission Diagnosis/Problem Multiple myeloma - History of Present Illness Initial Comments - Free Text/Narative: This patient has been admitted with epistaxis. Briefly over the past few weeks he's had recurrent multiple self-limiting episodes of nosebleeds predominantly left-sided. He is also presented to ER for these. Along with these symptoms he also had been complaining of back pain. Investigations have revealed multiple myeloma. He presented this morning with uncontrolled epistaxis for which he underwent nasal packing. I was consulted subsequently. However prior to my exam the patient had removed his nasal packing. MidBack Pain Score (Numeric/FACES): 10 - Related Data Allergies/Adverse Reactions: Allergies Allergy/AdvReac Type Severity Reaction Status Date / Time No Known Allergies Allergy Verified 04/30/17 08:47 Home Medications: Home Meds Docusate Sodium [Colace] 100 mg PO DAILY #60 cap 04/28/17 [Rx] amLODIPine [Norvasc] 5 mg PO DAILY #30 tablet 04/28/17 [Rx] Acetaminophen/HYDROcodone [[place] 325-5 MG] 2 tab PO Q4H PRN 04/30/17 [History] Polyethylene Glycol 3350 [MiraLAX] 17 gm PO BEDTIME PRN 04/30/17 [History] Past Medical History HEENT History: Reports: None Cardiovascular History: Reports: None Respiratory History: Reports: None Gastrointestinal History: Reports: Chronic Constipation Musculoskeletal History: Reports: Fracture Neurological History: Reports: None Psychiatric History: Reports: None Endocrine/Metabolic History: Reports: None Hematologic History: Reports: None Oncologic (Cancer) History: Reports: Other (See Below) Other Oncologic History: sacal neoplasm - Infectious Disease History Infectious Disease History: Reports: Chicken Pox - Past Surgical History GI Surgical History: Reports: Appendectomy Male Surgical History: Reports: None Musculoskeletal Surgical History: Reports: Other (See Below) Other Musculoskeletal Surgeries/Procedures:: Tibial Plateau Fracture Social & Family History - Family History Family Medical History: Noncontributory - Tobacco Use Smoking Status *Q: Current Status Unknown Second Hand Smoke Exposure: No - Caffeine Use Caffeine Use: Reports: Soda - Alcohol Use Days Per Week of Alcohol Use: 0 - Recreational Drug Use Recreational Drug Use: No - Living Situation & Occupation Living situation: Reports: Occupation: Employed (Works at [employer]) H&P Review of Systems - Review of Systems: Review Of Systems: ROS reveals no pertinent complaints other than HPI. Exam - Exam Exam: See Below - Vital Signs Vital Signs: Last Vital Signs Temp 36.6 C 04/30/17 21:08 Pulse 119 H 04/30/17 21:08 Resp 18 04/30/17 21:08 BP 186/100 H 04/30/17 21:08 Pulse Ox 95 04/30/17 21:08 Weight: 60 kg - Exam General: Alert, Oriented, Moderate Distress HEENT: Other Neck: Supple, Trachea Midline Physical Exam Comments:: On examination: There is right IN the right nasal cavity. The left nasal cavity mucosa appears healthy; no active bleeding. It is tried some blistering of his lips. Oral cavity and oropharynx appear normal. There is cerumen in bilateral external auditory canals. - Patient Data Lab Results Last 24 hrs: Laboratory Results - last 24 hr 04/30/17 04/30/17 04/30/17 Range/Units 12:58 14:50 15:17 Hgb (13.0-17.0) g/dL Hct (38.0-50.0) % INR 1.23 H (0.86-1.11) APTT 35.8 H (18.6-31.3) SEC Magnesium 2.0 (1.5-2.3) mEq/L Urine Color DARK YELLOW Urine Appearance CLOUDY Urine pH 6.0 (5.0-8.0) Ur Specific [place] 1.015 (1.001-1.035) Urine Protein 30 (NEGATIVE) mg/dL Urine Glucose (UA) NEGATIVE (NEGATIVE) mg/dL Urine Ketones NEGATIVE (NEGATIVE) mg/dL Urine Occult Blood LARGE H (NEGATIVE) Urine Nitrite NEGATIVE (NEGATIVE) Urine Bilirubin NEGATIVE (NEGATIVE) Urine Urobilinogen 0.2 (<2.0) EU/dL Ur Leukocyte Esterase NEGATIVE (NEGATIVE) Urine RBC TOO NUMBEROUS TO CT (0-2/HPF) Urine WBC 0-2 (0-5/HPF) Ur Epithelial Cells RARE (NONE-FEW) Amorphous Sediment LIGHT (NEGATIVE) Urine Bacteria FEW (NEGATIVE) 04/30/17 Range/Units 18:16 Hgb 8.4 L (13.0-17.0) g/dL Hct 24.6 L (38.0-50.0) % INR (0.86-1.11) APTT (18.6-31.3) SEC Magnesium (1.5-2.3) mEq/L Urine Color Urine Appearance Urine pH (5.0-8.0) Ur Specific [place] (1.001-1.035) Urine Protein (NEGATIVE) mg/dL Urine Glucose (UA) (NEGATIVE) mg/dL Urine Ketones (NEGATIVE) mg/dL Urine Occult Blood (NEGATIVE) Urine Nitrite (NEGATIVE) Urine Bilirubin (NEGATIVE) Urine Urobilinogen (<2.0) EU/dL Ur Leukocyte Esterase (NEGATIVE) Urine RBC (0-2/HPF) Urine WBC (0-5/HPF) Ur Epithelial Cells (NONE-FEW) Amorphous Sediment (NEGATIVE) Urine Bacteria (NEGATIVE) Result Diagrams: 05/01/17 05:10 05/01/17 05:10 Consult PN Assessment/Plan Procedures: Procedures COMPLETE CBC W/AUTO DIFF WBC (04/24/17) COMPREHEN METABOLIC PANEL (04/24/17) CT ABD & PELV 1/> REGNS (04/24/17) CT LOWER EXTREMITY W/O DYE (09/13/14) EMERGENCY DEPT VISIT (04/21/17) ROUTINE VENIPUNCTURE (04/24/17) URINALYSIS AUTO W/SCOPE (04/24/17) URINE CULTURE/COLONY COUNT (04/24/17) X-RAY EXAM ABDOMEN 1 VIEW (04/21/17) X-RAY EXAM L-S SPINE 2/3 VWS (04/15/17) X-RAY EXAM OF KNEE 1 OR 2 (02/02/15) X-RAY EXAM OF KNEE 3 (12/06/14) (1) Epistaxis SNOMED Code(s): 763131616 Code(s): R04.0 - EPISTAXIS Current Visit: Yes Problem List Initiated/Reviewed/Updated: Yes My Orders Last 24 Hours: - To avoid local trauma to the nose/nose picking/nose blowing - Nasal saline drops 3-4 drops every 4 hours. - Cool saline mist 3 times daily - If bleeding recurs will consider packing with Surgicel and avoid any local traumatic packing - Await consult with Hematology Oncology - PT /PTT - Discussed with the on-call hospitalist Thanks for the consult
[2017-05-01] MEDS: Sodium Chloride 0.9% 1,000 ML IV SCH ×2 (00:20→09:32)
[2017-05-01] MEDS: Cefepime 2 GM in Premix Bag 1 BAG IV SCH ×2 (00:23→13:20)
[2017-05-01] MEDS: Albuterol/Ipratropium 3.0-0.5 MG/3 ML Neb Soln NEB SCH ×7 (01:53→18:00)
[2017-05-01] MEDS: LORazepam 0.5 MG Tab PO PRN (02:02)
[2017-05-01] MEDS: Sodium Chloride 0.65% Nasal Spray 45 ML Bottle NAS SCH ×4 (03:54→14:57)
[2017-05-01] MEDS: amLODIPine 5 MG Tab PO SCH (08:18)
[2017-05-01] MEDS: Oseltamivir 6 MG/ML Susp 60 ML Bot PO SCH (08:19)
[2017-05-01] MEDS ORDERED: Magnesium Sulfate/Water 2 GM in Premix Bag 1 BAG IV ONE (08:47)
[2017-05-01] MEDS ORDERED: Potassium Chloride 20 MEQ Tab.ER PO ONE (08:47)
--- NOTE | 2017-05-01 08:48 | PCM.PN ---
- General Info Date of Service: 05/01/17 Admission Dx/Problem (Free Text): Admission Diagnosis/Problem Admission Diagnosis/Problem Multiple myeloma Subjective Update: Patient anxious and agitated this morning, trying to pull gown off and IVFs out. Reports a lot of pain to his back. Unable to speak mumbles more so. Knows he is in the hospital and wants to leave and go home. No further nose bleeds. and sister in law at bedside. In speaking with them, they understand the poor prognosis at this time. They would like to speak with Oncology and hear options, but also state "what is the point?" The would like to see him comfortable as possible and understands he is very ill at this time. He remains FULL CODE, he reported this yesterday, but doesn't know if he fully understood the gravity of the situation and how ill he is. She will wait to change until after speaking with oncologist this afternoon. Functional Status: Reports: Tolerating Diet. Denies: Pain Controlled, Ambulating - Review of Systems Pulmonary: Reports: No Symptoms. Denies: Shortness of Breath Cardiovascular: Reports: No Symptoms. Denies: Chest Pain Musculoskeletal: Reports: Back Pain. Denies: Neck Pain Neurological: Reports: Confusion, Weakness - Patient Data Vitals - Most Recent: Last Vital Signs Temp 98.8 F 05/01/17 08:00 Pulse 116 H 05/01/17 08:00 Resp 16 05/01/17 08:00 BP 158/94 H 05/01/17 08:18 Pulse Ox 92 L 05/01/17 08:00 Weight - Most Recent: 60 kg I&O - Last 24 Hours: Intake & Output 04/30/17 05/01/17 05/01/17 22:59 06:59 14:59 Intake Total 1350 2355 Output Total 375 2925 Balance 400 -570 Lab Results Last 24 Hours: Laboratory Results - last 24 hr 04/30/17 04/30/17 04/30/17 Range/Units 12:58 14:50 15:17 WBC (4.0-11.0) K/uL RBC (4.50-5.90) M/uL Hgb (13.0-17.0) g/dL Hct (38.0-50.0) % MCV (80.0-98.0) fL MCH (27.0-32.0) pg MCHC (31.0-37.0) g/dL RDW Std Deviation (28.0-62.0) fl RDW Coeff of Francis (11.0-15.0) % Plt Count (150-400) K/uL MPV (7.40-12.00) fL Add Manual Diff Nucleated RBC % /100WBC Nucleated RBCs # K/uL INR 1.23 H (0.86-1.11) APTT 35.8 H (18.6-31.3) SEC Sodium (136-146) mmol/L Potassium (3.5-5.1) mmol/L Chloride (98-110) mmol/L Carbon Dioxide (21-31) mmol/L BUN (6.0-23.0) mg/dL Creatinine (0.6-1.5) mg/dL Est Cr Clr Drug Dosing mL/min Estimated GFR (MDRD) ml/min Glucose (60-110) mg/dL Calcium (8.8-10.8) mg/dL Magnesium 2.0 (1.5-2.3) mEq/L Total Bilirubin (0.1-1.5) mg/dL AST (5-40) IU/L ALT (8-54) IU/L Alkaline Phosphatase (40-150) Total Protein (6.0-8.0) g/dL Albumin (3.5-5.0) g/dL Globulin (2.0-3.5) g/dL Albumin/Globulin Ratio (1.3-2.8) Urine Color DARK YELLOW Urine Appearance CLOUDY Urine pH 6.0 (5.0-8.0) Ur Specific [place] 1.015 (1.001-1.035) Urine Protein 30 (NEGATIVE) mg/dL Urine Glucose (UA) NEGATIVE (NEGATIVE) mg/dL Urine Ketones NEGATIVE (NEGATIVE) mg/dL Urine Occult Blood LARGE H (NEGATIVE) Urine Nitrite NEGATIVE (NEGATIVE) Urine Bilirubin NEGATIVE (NEGATIVE) Urine Urobilinogen 0.2 (<2.0) EU/dL Ur Leukocyte Esterase NEGATIVE (NEGATIVE) Urine RBC TOO NUMBEROUS TO CT (0-2/HPF) Urine WBC 0-2 (0-5/HPF) Ur Epithelial Cells RARE (NONE-FEW) Amorphous Sediment LIGHT (NEGATIVE) Urine Bacteria FEW (NEGATIVE) 04/30/17 05/01/1718 Range/Units 18:16 00:43 05:10 WBC 16.12 H (4.0-11.0) K/uL RBC 2.95 L (4.50-5.90) M/uL Hgb 8.4 L 8.8 L 9.1 L (13.0-17.0) g/dL Hct 24.6 L 25.6 L 26.6 L (38.0-50.0) % MCV 90.2 (80.0-98.0) fL MCH 30.8 (27.0-32.0) pg MCHC 34.2 (31.0-37.0) g/dL RDW Std Deviation 58.0 (28.0-62.0) fl RDW Coeff of Francis 18 H (11.0-15.0) % Plt Count 133 L (150-400) K/uL MPV 9.00 (7.40-12.00) fL Add Manual Diff YES Nucleated RBC % 1.1 /100WBC Nucleated RBCs # 0 K/uL INR (0.86-1.11) APTT (18.6-31.3) SEC Sodium (136-146) mmol/L Potassium (3.5-5.1) mmol/L Chloride (98-110) mmol/L Carbon Dioxide (21-31) mmol/L BUN (6.0-23.0) mg/dL Creatinine (0.6-1.5) mg/dL Est Cr Clr Drug Dosing mL/min Estimated GFR (MDRD) ml/min Glucose (60-110) mg/dL Calcium (8.8-10.8) mg/dL Magnesium (1.5-2.3) mEq/L Total Bilirubin (0.1-1.5) mg/dL AST (5-40) IU/L ALT (8-54) IU/L Alkaline Phosphatase (40-150) Total Protein (6.0-8.0) g/dL Albumin (3.5-5.0) g/dL Globulin (2.0-3.5) g/dL Albumin/Globulin Ratio (1.3-2.8) Urine Color Urine Appearance Urine pH (5.0-8.0) Ur Specific [place] (1.001-1.035) Urine Protein (NEGATIVE) mg/dL Urine Glucose (UA) (NEGATIVE) mg/dL Urine Ketones (NEGATIVE) mg/dL Urine Occult Blood (NEGATIVE) Urine Nitrite (NEGATIVE) Urine Bilirubin (NEGATIVE) Urine Urobilinogen (<2.0) EU/dL Ur Leukocyte Esterase (NEGATIVE) Urine RBC (0-2/HPF) Urine WBC (0-5/HPF) Ur Epithelial Cells (NONE-FEW) Amorphous Sediment (NEGATIVE) Urine Bacteria (NEGATIVE) 05/01/17 Range/Units 05:10 WBC (4.0-11.0) K/uL RBC (4.50-5.90) M/uL Hgb (13.0-17.0) g/dL Hct (38.0-50.0) % MCV (80.0-98.0) fL MCH (27.0-32.0) pg MCHC (31.0-37.0) g/dL RDW Std Deviation (28.0-62.0) fl RDW Coeff of Francis (11.0-15.0) % Plt Count (150-400) K/uL MPV (7.40-12.00) fL Add Manual Diff Nucleated RBC % /100WBC Nucleated RBCs # K/uL INR (0.86-1.11) APTT (18.6-31.3) SEC Sodium 140 (136-146) mmol/L Potassium 3.4 L (3.5-5.1) mmol/L Chloride 106 (98-110) mmol/L Carbon Dioxide 17 L (21-31) mmol/L BUN 48 H (6.0-23.0) mg/dL Creatinine 1.6 H (0.6-1.5) mg/dL Est Cr Clr Drug Dosing 46.35 mL/min Estimated GFR (MDRD) 45.8 ml/min Glucose 88 (60-110) mg/dL Calcium 12.7 H (8.8-10.8) mg/dL Magnesium 1.2 L (1.5-2.3) mEq/L Total Bilirubin 2.5 H (0.1-1.5) mg/dL AST 45 H (5-40) IU/L ALT 26 (8-54) IU/L Alkaline Phosphatase 140 (40-150) Total Protein 10.9 H (6.0-8.0) g/dL Albumin 1.9 L (3.5-5.0) g/dL Globulin 9.0 H (2.0-3.5) g/dL Albumin/Globulin Ratio 0.2 L (1.3-2.8) Urine Color Urine Appearance Urine pH (5.0-8.0) Ur Specific [place] (1.001-1.035) Urine Protein (NEGATIVE) mg/dL Urine Glucose (UA) (NEGATIVE) mg/dL Urine Ketones (NEGATIVE) mg/dL Urine Occult Blood (NEGATIVE) Urine Nitrite (NEGATIVE) Urine Bilirubin (NEGATIVE) Urine Urobilinogen (<2.0) EU/dL Ur Leukocyte Esterase (NEGATIVE) Urine RBC (0-2/HPF) Urine WBC (0-5/HPF) Ur Epithelial Cells (NONE-FEW) Amorphous Sediment (NEGATIVE) Urine Bacteria (NEGATIVE) Zak Results Last 24 Hours: Microbiology 04/30/17 14:50 Urine Culture - Preliminary Urine, Catheterized NO GROWTH AFTER 1 DAY 04/30/17 22:45 Gram Stain - Preliminary Sputum - Expectorated Med Orders - Current: Current Medications Acetaminophen (Tylenol) 650 mg PO Q4H PRN PRN Reason: Allergies Hydrocodone Bitart/Acetaminophen ([place] 325-5 Mg) 1 tab PO Q4H PRN PRN Reason: Pain Last Admin: 04/30/17 22:15 Dose: 1 tab Albuterol/Ipratropium (Duoneb 3.0-0.5 Mg/3 Ml) 3 ml NEB Q4HRRT [facility] Last Admin: 05/01/17 06:12 Dose: 3 ml Amlodipine Besylate (Norvasc) 5 mg PO DAILY [facility] Last Admin: 05/01/17 08:18 Dose: 5 mg Docusate Sodium (Colace) 100 mg PO DAILY [facility] Last Admin: 05/01/17 08:18 Dose: 100 mg Levofloxacin/Dextrose 750 mg/ (Premix) 150 mls @ 100 mls/hr IV Q24H [facility] Last Admin: 04/30/17 12:34 Dose: 100 mls/hr Sodium Chloride (Normal Saline) 1,000 mls @ 125 mls/hr IV ASDIRECTED [facility] Last Admin: 05/01/17 00:20 Dose: 125 mls/hr Vancomycin HCl 1 gm/ Sodium (Chloride) 250 mls @ 250 mls/hr IV Q12H [facility] Last Admin: 05/01/17 01:53 Dose: 250 mls/hr Cefepime HCl 2 gm/ Premix 50 mls @ 100 mls/hr IV Q12H [facility] Last Admin: 05/01/17 00:23 Dose: 100 mls/hr Magnesium Sulfate 2 gm/ Premix 50 mls @ 50 mls/hr IV ONETIME ONE Stop: 05/01/17 09:46 Lorazepam (Ativan) 0.5 mg PO Q6H PRN PRN Reason: Anxiety Last Admin: 05/01/17 02:02 Dose: 0.5 mg Ondansetron HCl (Zofran) 4 mg IVPUSH Q4H PRN PRN Reason: Nausea Oseltamivir Phosphate (Tamiflu) 30 mg PO BID [facility] Last Admin: 05/01/17 08:19 Dose: 5 ml Potassium Chloride (Klor-Con M20) 40 meq PO ONETIME ONE Stop: 05/01/17 08:48 Sodium Chloride (Saline Flush) 10 ml FLUSH ASDIRECTED PRN PRN Reason: Keep Vein Open Last Admin: 04/30/17 09:31 Dose: 10 ml Sodium Chloride (Saline Flush) 2.5 ml FLUSH ASDIRECTED PRN PRN Reason: Keep Vein Open Last Admin: 04/30/17 09:32 Dose: 2.5 ml Sodium Chloride ([place] Nasal [place]) 3 - 4 ml CALOS Q4H [facility] Last Admin: 05/01/17 06:40 Dose: 4 drop Vancomycin HCl (Pharmacy To Dose - Vancomycin) 1 dose .XX ASDIRECTED [facility] Discontinued Medications Sodium Chloride (Normal Saline) 1,000 mls @ 999 mls/hr IV .Bolus ONE Stop: 04/30/17 13:33 Last Admin: 04/30/17 12:39 Dose: 999 mls/hr Piperacillin Sod/Tazobactam (Sod 4.5 gm/ Sodium Chloride) 100 mls @ 100 mls/hr IV Q6H [facility] Cefepime HCl 2 gm/ Premix 50 mls @ 100 mls/hr IV Q8H [facility] Lidocaine HCl (Xylocaine 1%) Confirm Administered Dose 20 ml .ROUTE .STK-MED ONE Stop: 04/30/17 09:02 Last Admin: 04/30/17 09:32 Dose: 20 ml Lidocaine/Epinephrine (Xylocaine 1% With Epinephrine 1:100,000) 20 ml INJECT ONETIME ONE Stop: 04/30/17 08:45 Last Admin: 04/30/17 10:41 Dose: Not Given Metoprolol Tartrate (Lopressor) 5 mg IVPUSH ONETIME ONE Stop: 04/30/17 09:05 Last Admin: 04/30/17 10:40 Dose: Not Given - Exam General: Alert, Oriented, Cooperative, Mild Distress (appears in pain and is agitated) HEENT: No: Mucous Membr. Moist/[place] (imprved from yesterday, but lips are cracked with open areas, Vaseline has help moisten lips) Lungs: Crackles (fine crackles to bases.). No: Wheezing Cardiovascular: Regular Rhythm, Tachycardia. No: Murmurs GI/Abdominal Exam: Normal Bowel Sounds, Soft, Non-Tender, No Distention, No Abnormal Bruit, No Mass, Pelvis Stable, Hepatomegaly, Splenomegaly Back Exam: Normal Inspection. No: Full Range of Motion Extremities: Normal Inspection, Normal Range of Motion, Non-Tender, No Pedal Edema, Normal Capillary Refill Wound/Incisions: Other (petecheal rash to bilateral feet, continue to improve. ) Neurological: Other (mumbling speech, but able to clearly say yes to back pain) Psy/Mental Status: Anxious, Agitated - Problem List & Annotations (1) Gram-negative pneumonia SNOMED Code(s): 578693942 Code(s): J15.6 - PNEUMONIA DUE TO OTHER GRAM-NEGATIVE BACTERIA Status: Acute Current Visit: Yes (2) Multiple myeloma SNOMED Code(s): 471046370 Code(s): C90.00 - MULTIPLE MYELOMA NOT HAVING ACHIEVED REMISSION Status: Acute Current Visit: Yes Qualifiers: Multiple myeloma remission status: not in remission Qualified Code(s): C90.00 - Multiple myeloma not having achieved remission (3) Anemia SNOMED Code(s): 397324622 Code(s): D64.9 - ANEMIA, UNSPECIFIED Status: Acute Current Visit: Yes Qualifiers: Anemia type: iron deficiency Iron deficiency anemia type: chronic blood loss Qualified Code(s): D50.0 - Iron deficiency anemia secondary to blood loss (chronic) (4) Epistaxis SNOMED Code(s): 732103811 Code(s): R04.0 - EPISTAXIS Status: Acute Current Visit: Yes (5) Compression fracture of T12 vertebra SNOMED Code(s): 184621170 Code(s): S22.080A - WEDGE COMPRESSION FRACTURE OF T11-T12 VERTEBRA, INIT Status: Chronic Priority: Medium Current Visit: No (6) Hypercalcemia SNOMED Code(s): 45398562 Code(s): E83.52 - HYPERCALCEMIA Status: Acute Current Visit: No (7) Hepatomegaly SNOMED Code(s): 32492451 Code(s): R16.0 - HEPATOMEGALY, NOT ELSEWHERE CLASSIFIED Status: Chronic Priority: Medium Current Visit: No (8) Sacral lesion SNOMED Code(s): 71664381 Code(s): M53.3 - SACROCOCCYGEAL DISORDERS, NOT ELSEWHERE CLASSIFIED Status : Chronic Priority: High Current Visit: No (9) Splenomegaly SNOMED Code(s): 32486051 Code(s): R16.1 - SPLENOMEGALY, NOT ELSEWHERE CLASSIFIED Status: Chronic Current Visit: Yes - Problem List Review Problem List Initiated/Reviewed/Updated: Yes - My Orders Last 24 Hours: My Active Orders 04/30/17 12:15 Levofloxacin/Dextrose 5%-Water [Levaquin in D5W 750 MG/150 ML] 750 mg Premix Bag 1 bag IV Q24H 04/30/17 12:45 Sodium Chloride 0.9% [Normal Saline] 1,000 ml IV ASDIRECTED Vancomycin Pharmacy to Dose [Pharmacy to Dose - Vancomycin] 1 dose .XX ASDIRECTED 04/30/17 13:00 Cefepime [Maxipime in D5W 2 GM/50 ML] 2 gm Premix Bag 1 bag IV Q12H 04/30/17 13:03 Oseltamivir [Tamiflu] 30 mg PO BID 04/30/17 13:07 Chest wo Cont [CT] Urgent 04/30/17 13:08 Consult to Physician [CONS] Routine 04/30/17 13:10 Notify Provider Consults [RC] ASDIRECTED VTE/DVT Education [RC] PER UNIT ROUTINE Vital Signs [RC] Q4H Acetaminophen [Tylenol] 650 mg PO Q4H PRN Ondansetron [Zofran] 4 mg IVPUSH Q4H PRN 04/30/17 13:12 Intake and Output [RC] Q12H 04/30/17 13:15 RT Aerosol Therapy [RC] ASDIRECTED 04/30/17 13:22 Telemetry Monitoring [Cardiac Monitoring] [RC] Q8H 04/30/17 14:00 Albuterol/Ipratropium [DuoNeb 3.0-0.5 MG/3 ML] 3 ml NEB Q4HRRT Vancomycin [Vancocin] 1 gm Sodium Chloride 0.9% [Normal Saline] 250 ml IV Q12H 04/30/17 14:50 CULTURE URINE [RM] Routine 04/30/17 15:21 Communication Order [RC] ROUTINE 04/30/17 15:23 Communication Order [RC] ROUTINE 04/30/17 15:27 Urinary Catheter Assessment [RC] ASDIRECTED Acetaminophen/HYDROcodone [[place] 325-5 MG] 1 tab PO Q4H PRN 04/30/17 15:29 LORazepam [Ativan] 0.5 mg PO Q6H PRN 04/30/17 15:30 Millan Catheter Insertion [Insert Urinary Catheter] [OM.PC] Q24H Sodium Chloride 0.65% [[place] Nasal [place]] 3 - 4 ml CALOS Q4H amLODIPine [Norvasc] 5 mg PO DAILY 04/30/17 17:12 Resuscitation Status Routine 04/30/17 22:45 CULTURE SPUTUM + SMEAR [RM] Routine 04/30/17 Dinner Regular Diet [DIET] 05/01/17 05:10 CBC WITH AUTO DIFF [HEME] AM 05/01/17 08:47 Magnesium Sulfate/Water [Magnesium Sulfate 2 GM in Water 50 ML] 2 gm Premix Bag 1 bag IV ONETIME Potassium Chloride [Klor-Con M20] 40 meq PO ONETIME ONE 05/01/17 09:00 Docusate Sodium [Colace] 100 mg PO DAILY 05/02/17 05:11 MAGNESIUM [CHEM] AM 05/03/17 05:11 MAGNESIUM [CHEM] AM - Plan Plan:: This 51 year old male admitted with epistaxis and suspected gram negative pneumonia 1. Suspected Gram negative pneumonia: Tachycardia continues, 100-115 likely related to agitation and anxiety. Chest CT, reveals "nodular infiltrate are seen in the right upper lobe, right middle lobe and left lower lobes as well as in both lower lobes. This becomes more confluent the inferior lower lobes. Infiltrate in the lung bases is new from prior exam, 12 mm hypodense left thyroid nodule, 2 cm lytic bone lesion posterior left 8th rib and 1 cm lytic focus right pedicle of T9 suspicious for metastatic disease. In addition, there are two small foci of lucency within the T5 vertebral body with minimal bowing of the superior endplate. Stable T12 compression fracture and lucency of the posterior vertebral body." BC negative x 1 day. WUC negative for growth. SPutum growing gram positive rods. Continue broad spectrum antibiotics, Levaquin , Cefepime, Vanco today. Suspected influenza, covering with Tamiflu 30 mg BID. 2. Epistaxis: No futher bleeding since last night. Dr. Medrano consulted, we appreciate her assistance with this patient. Continue cool mist blow by and saline drops to nares. Refrain from nasal trauma. 3. Multiple Myeloma: Dr. Tom will come see patient here to speak regarding treatment options. Has bone marrow biospy scheduled for FridayMay 05. Family very aware and understanding of patient's poor condition now. They would like to hear options but understand there may not be much available, especially with how sick Anthony is. We did again discuss code status, but at this time they would like to remain full code until speaking with Oncologist. 4. Anemia: Transfused 2 units PRBCs. Hgb 9.1 this am. continue to monitor. 5. Hypercalcemia: 12.7 this morning. Conitnue to monitor with IVF administration. 6. HTN: elevated, asymptomatic. Continue Norvasc. Likely elevated due to pain. More relaxed after Morphine administered. VTE prophylaxis: SCDs only. Dispo: 2-4 days pending improvement.
[2017-05-01] MEDS ORDERED: Docusate Sodium 100 MG Cap PO SCH (09:00)
[2017-05-01] MEDS: LORazepam 2 MG/ML MDV IVPUSH PRN ×2 (10:25→17:57)
[2017-05-01] MEDS: Morphine 2 MG/ML Syringe IVPUSH PRN ×2 (10:30→17:57)
--- NOTE | 2017-05-01 10:41 | CT ---
EXAM DATE: 04/30/17 PATIENT'S AGE: 51 Patient: VALERY JONES Facility: [place], [place] Site . Site : 1965 Study: CT Chest [id number] 4:45:42 PM Ordering Physician: Rosa Brown Final Report: HISTORY: Shortness of breath, cough and leukocytosis. TECHNIQUE: The chest was scanned using helical technique at 3 mm intervals without IV or oral contrast. Sagittal and coronal reconstructions were performed. COMPARISON: CT and pelvis 24 April 2017. FINDINGS: Mediastinum and haylee: 1.2 cm hypodense nodule left lobe of the thyroid. No pathologic mediastinal or hilar lymphadenopathy is seen. Cardiovascular structures: Thoracic aorta is normal in caliber. The heart is at the upper limits of normal. No pericardial effusion. Lungs and pleura: There is nodular infiltrates seen in the right upper lobe and right middle lobe with less extensive infiltrate left upper lobe. Patchy nodular infiltrate is seen both lower lobes where it is more confluent inferiorly. No pleural effusion. Chest wall: No pathologic axillary lymphadenopathy. No chest wall mass. Upper abdomen: The visualized unenhanced liver is homogeneous. The spleen is incompletely included on the exam. Osseous structures: Lytic bone lesion posterior left 8th rib fracture image 48 series 201 measuring 2 x 1 cm. T12 compression fracture is again identified with some patchy lucency through the posterior aspect of vertebral body. There is slight bowing of the superior endplate of T8 and T5. T5 has 2 small areas of lucency as well. Right T9 pedicle has a 1 cm lytic bone lesion. IMPRESSION: 1. Nodular infiltrate are seen in the right upper lobe, right middle lobe and left lower lobes as well as in both lower lobes. This becomes more confluent the inferior lower lobes. Infiltrate in the lung bases is new from prior exam. 2. 12 mm hypodense left thyroid nodule. 3. 2 cm lytic bone lesion posterior left 8th rib and 1 cm lytic focus right pedicle of T9 suspicious for metastatic disease. In addition, there are two small foci of lucency within the T5 vertebral body with minimal bowing of the superior endplate. Stable T12 compression fracture and lucency of the posterior vertebral body. Dictated by Sary Cartwright MD @ 04/30/2017 5:20:54 PM Dictated by: Sary Cartwright MD @ 04/30/2017 17:23:59 (Electronic Signature) Report Signed by Proxy. MTDD
[2017-05-01] MEDS: Levofloxacin/Dextrose 5%-Water 750 MG in Premix Bag 1 BAG IV SCH (11:46)
[2017-05-01] MEDS ORDERED: Zoledronic Acid 3 MG in Sodium Chloride 0.9% 100 ML IV ONE (15:58)
[2017-05-01] MEDS ORDERED: Sodium Chloride 0.9% 1,000 ML IV SCH ×2 (15:59→16:11)
[2017-05-01] MEDS ORDERED: Calcitonin (Salmon) 200 Units/ML 2 ML MDV SUBCUT SCH (16:00)
[2017-05-01] MEDS ORDERED: Dexamethasone 10 MG/ML SDV IVPUSH ONE (16:11)
[2017-05-01] MEDS ORDERED: Dexamethasone 40 MG in Dextrose 5% in Water 50 ML IV ONE ×2 (16:15)
--- NOTE | 2017-05-01 16:42 | PCM.DCSUM1 ---
Discharge Summary - Hospital Course Brief History: This 51 year old male with likely multiple myeloma. He was recently discharged from the hospital FridayApril 29 after being admitted for new onset anemia. Pathology per peripheral smear suggests multiple myeloma. Prior to admission, he had complained of hematuria and epistaxis, but during stay he had no epistaxis and with blood transfusion, hemaurtia was resolving and urine was light pink by the time he was discharged. not in room during interview. Patient lethargic and sleepy laying in the bed. He reports nose bleed started about 1 day ago and has been dripping intermittently. In ED his L nare was packed with rhino rocket with lidocaine and epi. In the ED, leukocytosis noted at 17,000. Hgb 8.6, it was 9.2 on discharge on Friday. Platelets 158, BUN 36, Cr 1.6, Bili 2.0. Lactate unable to be done due to high serum protein. Calcium 12.8. CXR was negative, but due to recent hospitalization , tachycardia cough and shortness of breath pneumonia is suspected. He will be admitted for epistaxis and suspected gram negative pneumonia. - Discharge Data Discharge Date: 05/01/17 Discharge Disposition: DC/Tfer to Acute Hospital 02 Condition: Fair - Discharge Diagnosis/Problem(s) (1) Gram-negative pneumonia SNOMED Code(s): 364058027 ICD Code: J15.6 - PNEUMONIA DUE TO OTHER GRAM-NEGATIVE BACTERIA Status: Acute Current Visit: Yes (2) Multiple myeloma SNOMED Code(s): 549068057 ICD Code: C90.00 - MULTIPLE MYELOMA NOT HAVING ACHIEVED REMISSION Status: Acute Current Visit: Yes Qualifiers: Multiple myeloma remission status: not in remission Qualified Code(s): C90.00 - Multiple myeloma not having achieved remission (3) Anemia SNOMED Code(s): 360756809 ICD Code: D64.9 - ANEMIA, UNSPECIFIED Status: Acute Current Visit: Yes Qualifiers: Anemia type: iron deficiency Iron deficiency anemia type: chronic blood loss Qualified Code(s): D50.0 - Iron deficiency anemia secondary to blood loss (chronic) (4) Epistaxis SNOMED Code(s): 314096941 ICD Code: R04.0 - EPISTAXIS Status: Acute Current Visit: Yes (5) Compression fracture of T12 vertebra SNOMED Code(s): 677092709 ICD Code: S22.080A - WEDGE COMPRESSION FRACTURE OF T11-T12 VERTEBRA, INIT Status: Chronic Priority: Medium Current Visit: No (6) Hypercalcemia SNOMED Code(s): 06603260 ICD Code: E83.52 - HYPERCALCEMIA Status: Acute Current Visit: No (7) Hepatomegaly SNOMED Code(s): 34816056 ICD Code: R16.0 - HEPATOMEGALY, NOT ELSEWHERE CLASSIFIED Status: Chronic Priority: Medium Current Visit: No (8) Sacral lesion SNOMED Code(s): 72906913 ICD Code: M53.3 - SACROCOCCYGEAL DISORDERS, NOT ELSEWHERE CLASSIFIED Status : Chronic Priority: High Current Visit: No (9) Splenomegaly SNOMED Code(s): 58974759 ICD Code: R16.1 - SPLENOMEGALY, NOT ELSEWHERE CLASSIFIED Status: Chronic Current Visit: Yes - Patient Summary/Data Consults: Consultations 04/30/17 13:08 Consult to Physician [CONS] Routine - Discharge Plan Home Medications: Home Meds Docusate Sodium [Colace] 100 mg PO DAILY #60 cap 04/28/17 [Rx] amLODIPine [Norvasc] 5 mg PO DAILY #30 tablet 04/28/17 [Rx] Acetaminophen/HYDROcodone [[place] 325-5 MG] 2 tab PO Q4H PRN 04/30/17 [History] Polyethylene Glycol 3350 [MiraLAX] 17 gm PO BEDTIME PRN 04/30/17 [History] Referrals: Leo Deshpande MD [Primary Care Provider] - - Discharge Summary/Plan Comment DC Time >30 min.: No Discharge Summary/Plan Comment: Discharge Diagnoses HCAP Hypercalcemia AMS Multiple myeloma Epistaxis- resolved Anthony was admitted secondary to health care associated pneumonia and treated for suspected gram negative pneumonia, He was treated with broad spectrum antibiotics, Levaquin Cefepime and Vancomycin. He was also started on tamiflu due to recent hospitalist. Unable to test due to worry of nasal trauma and epistaxis on admit. Dr. Mitchell evans consulted due to epistaxis, but this stopped after packing and lidocaine with epi. He removed this accidentally later, but no further epistaxis was observed. he ws transfused 2 units of blood due to hgb of 8.6. Calcium was noted at 12.8 on admission. This had lowered since last admission on 04/25. It initially was 17.7 and lowered to 14 with IVF admistration. No other treatment for this was given. He showed no AMS at this time and no arrhythmias were noted. Today he was noted to be more altered in cognition, but has since become slightly more alert. He was given some Ativan for agitation this morning. Dr. Tom, Oncology came to visit with patient since patient had first appointment today with Oncology since diagnoses. Dr Tom recommended transfer to a higher level of care due to the complexity of his illness. He also recommended Calcitonin, Zometa, and Dexamethasone 40 mg to be given now as well as increasing his fluids to 250 ml/hr. He spoke with family and they agree with transfer to [facility] so Dr. Tom will be available to consult tomorrow. I spoke with Dr Cary, hospitalist who has accepted patient for transfer. Patient to be transferred by air due to long trip and critical condition of patient. is at bedside and will be traveling with patient. Dr Lee available and made aware of patient transfer to [place]. - General Info Date of Service: 05/01/17 Admission Dx/Problem (Free Text: Admission Diagnosis/Problem Admission Diagnosis/Problem Multiple myeloma Subjective Update: In bed resting, family at bedside, including sister in laws and . patient is alert, but easily falling asleep. C/o pain to lower back. No chest or SOB. Functional Status: Reports: Pain Controlled, Urinating. Denies: Ambulating - Review of Systems General: Reports: Weakness, Fatigue, Malaise. Denies: Fever HEENT: Reports: No Symptoms Pulmonary: Reports: No Symptoms. Denies: Shortness of Breath, Cough, Sputum Cardiovascular: Reports: No Symptoms. Denies: Chest Pain, Lightheadedness Gastrointestinal: Reports: No Symptoms. Denies: Abdominal Pain, Nausea, Vomiting Genitourinary: Reports: No Symptoms. Denies: Dysuria, Frequency, Burning Musculoskeletal: Reports: No Symptoms. Denies: Neck Pain Neurological: Reports: No Symptoms. Denies: Confusion Psychiatric: Reports: No Symptoms. Denies: Confusion - Patient Data Vitals - Most Recent: Last Vital Signs Temp 99.0 F 05/01/17 16:00 Pulse 111 H 05/01/17 16:00 Resp 16 05/01/17 16:00 BP 162/101 H 05/01/17 16:00 Pulse Ox 94 L 01/11/18 16:00 Weight - Most Recent: 60 kg I&O - Last 24 hours: Intake & Output 05/01/17 05/01/17 05/01/17 06:59 14:59 22:59 Intake Total 2355 100 3212 Output Total 2925 2805 Balance -570 100 407 Lab Results - Last 24 hrs: Laboratory Results - last 24 hr 04/30/17 05/01/17 05/01/17 Range/Units 18:16 00:43 05:10 WBC 16.12 H (4.0-11.0) K/uL RBC 2.95 L (4.50-5.90) M/uL Hgb 8.4 L 8.8 L 9.1 L (13.0-17.0) g/dL Hct 24.6 L 25.6 L 26.6 L (38.0-50.0) % MCV 90.2 (80.0-98.0) fL MCH 30.8 (27.0-32.0) pg MCHC 34.2 (31.0-37.0) g/dL RDW Std Deviation 58.0 (28.0-62.0) fl RDW Coeff of Francis 18 H (11.0-15.0) % Plt Count 133 L (150-400) K/uL MPV 9.00 (7.40-12.00) fL Add Manual Diff YES Neutrophils % (Manual) 53 (48.0-80.0) % Band Neutrophils % 12 % Lymphocytes % (Manual) 25 (16.0-40.0) % Monocytes % (Manual) 3 (0.0-15.0) % Eosinophils % (Manual) 1 (0.0-7.0) % Plasma Cell % (Manual) 6 Nucleated RBC % 1.1 /100WBC Absolute Seg Neuts 8.5 H (1.4-5.7) Band Neutrophils # 1.9 Lymphocytes # (Manual) 4.0 H (0.6-2.4) Monocytes # (Manual) 0.5 (0.0-0.8) Eosinophils # (Manual) 0.2 (0.0-0.7) Nucleated RBCs # 0 K/uL Sodium (136-146) mmol/L Potassium (3.5-5.1) mmol/L Chloride (98-110) mmol/L Carbon Dioxide (21-31) mmol/L BUN (6.0-23.0) mg/dL Creatinine (0.6-1.5) mg/dL Est Cr Clr Drug Dosing mL/min Estimated GFR (MDRD) ml/min Glucose (60-110) mg/dL Calcium (8.8-10.8) mg/dL Magnesium (1.5-2.3) mEq/L Total Bilirubin (0.1-1.5) mg/dL AST (5-40) IU/L ALT (8-54) IU/L Alkaline Phosphatase (40-150) Total Protein (6.0-8.0) g/dL Albumin (3.5-5.0) g/dL Globulin (2.0-3.5) g/dL Albumin/Globulin Ratio (1.3-2.8) 05/01/17 Range/Units 05:10 WBC (4.0-11.0) K/uL RBC (4.50-5.90) M/uL Hgb (13.0-17.0) g/dL Hct (38.0-50.0) % MCV (80.0-98.0) fL MCH (27.0-32.0) pg MCHC (31.0-37.0) g/dL RDW Std Deviation (28.0-62.0) fl RDW Coeff of Francis (11.0-15.0) % Plt Count (150-400) K/uL MPV (7.40-12.00) fL Add Manual Diff Neutrophils % (Manual) (48.0-80.0) % Band Neutrophils % % Lymphocytes % (Manual) (16.0-40.0) % Monocytes % (Manual) (0.0-15.0) % Eosinophils % (Manual) (0.0-7.0) % Plasma Cell % (Manual) Nucleated RBC % /100WBC Absolute Seg Neuts (1.4-5.7) Band Neutrophils # Lymphocytes # (Manual) (0.6-2.4) Monocytes # (Manual) (0.0-0.8) Eosinophils # (Manual) (0.0-0.7) Nucleated RBCs # K/uL Sodium 140 (136-146) mmol/L Potassium 3.4 L (3.5-5.1) mmol/L Chloride 106 (98-110) mmol/L Carbon Dioxide 17 L (21-31) mmol/L BUN 48 H (6.0-23.0) mg/dL Creatinine 1.6 H (0.6-1.5) mg/dL Est Cr Clr Drug Dosing 46.35 mL/min Estimated GFR (MDRD) 45.8 ml/min Glucose 88 (60-110) mg/dL Calcium 12.7 H (8.8-10.8) mg/dL Magnesium 1.2 L (1.5-2.3) mEq/L Total Bilirubin 2.5 H (0.1-1.5) mg/dL AST 45 H (5-40) IU/L ALT 26 (8-54) IU/L Alkaline Phosphatase 140 (40-150) Total Protein 10.9 H (6.0-8.0) g/dL Albumin 1.9 L (3.5-5.0) g/dL Globulin 9.0 H (2.0-3.5) g/dL Albumin/Globulin Ratio 0.2 L (1.3-2.8) SANKET Results - Last 24 hrs: Microbiology 04/30/17 11:20 Aerobic Blood Culture - Preliminary Blood - Venous NO GROWTH AFTER 1 DAY Anaerobic Blood Culture - Preliminary NO GROWTH AFTER 1 DAY 04/30/17 11:34 Aerobic Blood Culture - Preliminary Blood - Venous - Lab Draw NO GROWTH AFTER 1 DAY Anaerobic Blood Culture - Preliminary NO GROWTH AFTER 1 DAY 04/30/17 14:50 Urine Culture - Preliminary Urine, Catheterized NO GROWTH AFTER 1 DAY 04/30/17 22:45 Gram Stain - Preliminary Sputum - Expectorated Med Orders - Current: Current Medications Acetaminophen (Tylenol) 650 mg PO Q4H PRN PRN Reason: Allergies Hydrocodone Bitart/Acetaminophen ([place] 325-5 Mg) 1 tab PO Q4H PRN PRN Reason: Pain Last Admin: 04/30/17 22:15 Dose: 1 tab Albuterol/Ipratropium (Duoneb 3.0-0.5 Mg/3 Ml) 3 ml NEB Q4HRRT [facility] Last Admin: 05/01/17 13:28 Dose: 3 ml Amlodipine Besylate (Norvasc) 5 mg PO DAILY [facility] Last Admin: 05/01/17 08:18 Dose: 5 mg Calcitonin [place] (Miacalcin) 240 units SUBCUT Q12H [facility] Docusate Sodium (Colace) 100 mg PO DAILY [facility] Last Admin: 05/01/17 08:18 Dose: 100 mg Levofloxacin/Dextrose 750 mg/ (Premix) 150 mls @ 100 mls/hr IV Q24H [facility] Last Admin: 05/01/17 11:46 Dose: 100 mls/hr Vancomycin HCl 1 gm/ Sodium (Chloride) 250 mls @ 250 mls/hr IV Q12H [facility] Last Admin: 05/01/17 14:53 Dose: 250 mls/hr Cefepime HCl 2 gm/ Premix 50 mls @ 100 mls/hr IV Q12H [facility] Last Admin: 05/01/17 13:20 Dose: 100 mls/hr Sodium Chloride (Normal Saline) 1,000 mls @ 250 mls/hr IV ASDIRECTED [facility] Lorazepam (Ativan) 0.5 mg IVPUSH Q6H PRN PRN Reason: anxiety agitation Last Admin: 05/01/17 10:25 Dose: 0.5 mg Morphine Sulfate (Morphine) 2 mg IVPUSH Q2H PRN PRN Reason: Pain Last Admin: 05/01/17 10:30 Dose: 2 mg Ondansetron HCl (Zofran) 4 mg IVPUSH Q4H PRN PRN Reason: Nausea Oseltamivir Phosphate (Tamiflu) 30 mg PO BID [facility] Last Admin: 05/01/17 08:19 Dose: 5 ml Sodium Chloride (Saline Flush) 10 ml FLUSH ASDIRECTED PRN PRN Reason: Keep Vein Open Last Admin: 04/30/17 09:31 Dose: 10 ml Sodium Chloride (Saline Flush) 2.5 ml FLUSH ASDIRECTED PRN PRN Reason: Keep Vein Open Last Admin: 04/30/17 09:32 Dose: 2.5 ml Sodium Chloride ([place] Nasal [place]) 3 - 4 ml CALOS Q4H [facility] Last Admin: 05/01/17 14:57 Dose: 4 drop Vancomycin HCl (Pharmacy To Dose - Vancomycin) 1 dose .XX ASDIRECTED [facility] Discontinued Medications Sodium Chloride (Normal Saline) 1,000 mls @ 999 mls/hr IV .Bolus ONE Stop: 04/30/17 13:33 Last Admin: 04/30/17 12:39 Dose: 999 mls/hr Piperacillin Sod/Tazobactam (Sod 4.5 gm/ Sodium Chloride) 100 mls @ 100 mls/hr IV Q6H [facility] Sodium Chloride (Normal Saline) 1,000 mls @ 125 mls/hr IV ASDIRECTED [facility] Last Admin: 05/01/17 09:32 Dose: 125 mls/hr Cefepime HCl 2 gm/ Premix 50 mls @ 100 mls/hr IV Q8H [facility] Magnesium Sulfate 2 gm/ Premix 50 mls @ 50 mls/hr IV ONETIME ONE Stop: 05/01/17 09:46 Last Admin: 05/01/17 09:25 Dose: 50 mls/hr Zoledronic Acid 3 mg/ Sodium (Chloride) 103.75 mls @ 415 mls/hr IV ONETIME ONE Stop: 05/01/17 15:59 Sodium Chloride (Normal Saline) 1,000 mls @ 200 mls/hr IV ASDIRECTED [facility] Dexamethasone 40 mg/ Dextrose/ (Water) 54 mls @ 216 mls/hr IV ONETIME ONE Stop: 05/01/17 16:29 Lidocaine HCl (Xylocaine 1%) Confirm Administered Dose 20 ml .ROUTE .STK-MED ONE Stop: 04/30/17 09:02 Last Admin: 04/30/17 09:32 Dose: 20 ml Lidocaine/Epinephrine (Xylocaine 1% With Epinephrine 1:100,000) 20 ml INJECT ONETIME ONE Stop: 04/30/17 08:45 Last Admin: 04/30/17 10:41 Dose: Not Given Lorazepam (Ativan) 0.5 mg PO Q6H PRN PRN Reason: Anxiety Last Admin: 05/01/17 02:02 Dose: 0.5 mg Metoprolol Tartrate (Lopressor) 5 mg IVPUSH ONETIME ONE Stop: 04/30/17 09:05 Last Admin: 04/30/17 10:40 Dose: Not Given Potassium Chloride (Klor-Con M20) 40 meq PO ONETIME ONE Stop: 05/01/17 08:48 Last Admin: 05/01/17 09:25 Dose: 40 meq - Exam General: Reports: Alert, Cooperative, No Acute Distress. Denies: Oriented HEENT: Reports: Other (cachectic in appearance. ). Denies: Mucous Membr. Moist/ [place] (cracked lips, bleed intermittently) Neck: Reports: Supple Lungs: Reports: Normal Respiratory Effort, Rhonchi (bilateral bases) Cardiovascular: Reports: Regular Rate, Regular Rhythm GI/Abdominal Exam: Normal Bowel Sounds, Soft, Non-Tender, No Organomegaly, No Distention, No Abnormal Bruit, No Mass, Pelvis Stable Back Exam: Reports: Normal Inspection, Full Range of Motion Extremities: Normal Inspection, Normal Range of Motion, Non-Tender, No Pedal Edema, Normal Capillary Refill Neurological: Reports: No New Focal Deficit Psy/Mental Status: Reports: Alert, Normal Affect, Normal Mood *Q Meaningful Use (DIS) - VTE *Q VTE Criteria *Q: - Stroke *Q Stroke Criteria *Q: - AMI *Q AMI Criteria *Q:
[2017-05-01 16:59] VITALS: BP 167/92
== END 2017-05-01 18:15 | DRG 137 ==
LOC: MW.ED 08:30 → MW.MS 10:06
PROVIDERS: ADMIT Internal Medicine; ATTEND Internal Medicine
PROC: 30233N1 Transfusion of Nonautologous Red Blood Cells into Peripheral Vein, Percutaneous Approach (ICD-10-PCS; principal; 2017-04-30)
DX: J15.6 Pneumonia due to other Gram-negative bacteria (principal); J11.00 Influenza due to unidentified influenza virus with unspecified type of pneumonia; R04.0 Epistaxis; D50.0 Iron deficiency anemia secondary to blood loss (chronic); K59.09 Other constipation; C90.00 Multiple myeloma not having achieved remission; E83.52 Hypercalcemia; R16.0 Hepatomegaly, not elsewhere classified; M53.3 Sacrococcygeal disorders, not elsewhere classified; R16.1 Splenomegaly, not elsewhere classified; I10 Essential (primary) hypertension; E04.1 Nontoxic single thyroid nodule; R31.9 Hematuria, unspecified; R53.83 Other fatigue; S22.080A Wedge compression fracture of T11-T12 vertebra, initial encounter for closed fracture; X58.XXXA Exposure to other specified factors, initial encounter; R45.1 Restlessness and agitation; Z79.899 Other long term (current) drug therapy
CPT/HCPCS: 30901; 36415; 36430; 51702; 71045; 71045-26; 71250; 71250-26; 80053; 81001; 83735; 85014; 85018; 85025; 85384; 85610; 85730; 86156; 86850; 86900; 86901; 86922; 87040; 87070; 87086; 87205; 93005; 94640; 99283; 99284-25; A9270-GY; G0103; J0630; J0692; J1100; J1956; J2060; J2270; J3370; J3475; J3489; J7030; J7040; J7050; J7060; P9016